=== PATIENT | male | born 1960 | race Caucasian/White ===

== ENCOUNTER 2018-08-17 07:31 | Emergency (ER) | payer BC, SELFPAY ==
[2018-08-17] MEDS ORDERED: ONDANSETRON 4 MG/2 ML VIAL ONE (08:04)
[2018-08-17] MEDS ORDERED: LIDOCAINE VISCOUS 2% SOLN 15 ML UDC ONE (08:04)
[2018-08-17] MEDS ORDERED: MAGNE/ALUM HYDROXD 30 ML UCUP ONE (08:04)
[2018-08-17] MEDS ORDERED: NA CHLORIDE 0.9% 500 ML ONE ×2 (08:04→10:49)
[2018-08-17 08:21] LABS: Absolute Lymphocytes (CBC) 2.2 K/uL (0.7-4.9); Absolute Monocytes 1.2 K/uL (0.1-1.3); Absolute Neutrophil 7.8 K/uL (1.8-8.0); Eosinophils % 1.9 % (0-4.4); Hematocrit 54.8 % (39.6-49.0); Lymphocytes % 18.9 % (15.3-44.8); MCH 31.3 pg (27.0-35.0); MCV 93.4 fL (80-100); MPV 8.8 fL (7.6-11.3); Monocytes % 10.7 % (3.3-12.3); RBC Red Blood Cell Count 5.87 M/uL (4.33-5.43)
--- NOTE | 2018-08-17 08:52 | RAD REPORT ---
EXAM DESCRIPTION: US - Abdomen Exam Limited - 08/17/2018 8:20 am CLINICAL HISTORY: ABD PAIN COMPARISON: No comparisons FINDINGS: The gallbladder demonstrates 2 small echogenic gallstones. No pericholecystic fluid or gal lbladder wall thickening. The common bile duct is normal measuring 5 mm. The liver demonstrates no findings of intrahepatic biliary dilatation. IMPRESSION: Cholelithiasis.
[2018-08-17 09:14] LABS: ALT/SGPT 56 U/L (12-78); AST/SGOT 32 U/L (15-37); Albumin 3.7 g/dL (3.4-5.0); Alkaline Phosphatase 98 U/L (45-117); BUN Blood Urea Nitrogen 10 mg/dL (7-18); Bicarbonate 29 mmol/L (21-32); Bilirubin Direct 0.1 mg/dL (0-0.2); Bilirubin Total 0.8 mg/dL (0.2-1.0); Glucose Level 186 mg/dL (74-106); Lipase 108 U/L (73-393); Potassium 4.1 mmol/L (3.5-5.1); Sodium Level 138 mmol/L (136-145)
--- NOTE | 2018-08-17 10:23 | RAD REPORT ---
EXAM DESCRIPTION: CTAbdomen Pelvis W Contrast - 08/17/2018 10:10 am CLINICAL HISTORY: Abdominal pain. ABD PAIN COMPARISON: No comparisons TECHNIQUE: Biphasic CT imaging of the abdomen and pelvis was performed with 100 ml non-ionic IV cont rast. All CT scans are performed using dose optimization technique as appropriate and may include automated exposure control or mA/KV adjustment according to patient size. FINDINGS: The lung bases are clear. Mild fatty liver is present. Cholelithiasis. The spleen, pancreas, kidneys are within normal limits. Small nodules are present in both adrenal glands. No bowel obstruction, free air, free fluid or abscess. Mildly prominent small bowel loops are seen wh ich appear slightly thickened. Small amount of fluid is seen in the small bowel mesentery, right lowe r quadrant and along the right edge of the liver. The appendix is normal. No evidence of significant lymphadenopathy. Lumbosacral degenerative changes. IMPRESSION: Few mildly thickened small bowel loops are seen with a small amount of free fluid presen t. The findings most likely indicate a nonspecific enteritis. Cholelithiasis.
--- NOTE | 2018-08-17 10:39 | ER ---
Nurse's Notes [facility] Name: Dakota Escalera Age: 58 yrs Sex: Male : 1960 Arrival Date: 08/17/2018 Time: 07:35 Bed 16 Private MD: Dakota Jeronimo D Diagnosis: Upper abdominal pain, unspecified;Enteritis Presentation: 08/17 07:36 Presenting complaint: Patient states: i have been sick to my stomach since , hj N/V and diarrhea and my tumny hurts (epigastric area) and i belch a lot; reports fever; pain is 6/10;. Transition of care: patient was not received from another setting of care. Onset of symptoms was August 17, 2018. Risk Assessment: Do you want to hurt yourself or someone else? Patient reports no desire to harm self or others. Initial Sepsis Screen: Does the patient meet any 2 criteria? No. Patient's initial sepsis screen is negative. Does the patient have a suspected source of infection? No. Patient's initial sepsis screen is negative. Care prior to arrival: None. 07:36 Method Of Arrival: Ambulatory 07:36 Acuity: ADENIKE 3 hj Triage Assessment: 07:41 General: Appears in no apparent distress. uncomfortable, Behavior is calm, cooperative, hj appropriate for age. Pain: Complains of pain in abdomen. GI: Reports upper abdominal pain, diarrhea, nausea, vomiting. Historical: - Allergies: 07:40 PENICILLINS; hj - Home Meds: 07:40 levothyroxine 25 mcg tab 1 tab once daily [Active]; Victoza 2-Raymundo 0.6 mg/0.1 mL (18 hj mg/3 mL) subcutaneous pnij [Active]; - PMHx: 07:40 Hypothyroidism; Diabetes - NIDDM; hj - PSHx: 07:40 back surgery; hj - Immunization history:: Adult Immunizations up to date. - Social history:: Smoking status: Patient uses tobacco products, smokes one pack cigarettes per day. Patient/guardian denies using alcohol. - Ebola Screening: : Patient negative for fever greater than or equal to 101.5 degrees Fahrenheit, and additional compatible Ebola Virus Disease symptoms Patient denies exposure to infectious person Patient denies travel to an Ebola-affected area in the 21 days before illness onset. - Family history:: not pertinent. - Hospitalizations: : No recent hospitalization is reported. Screenin:41 Abuse screen: Denies threats or abuse. Denies injuries from another. Nutritional hj screening: No deficits noted. Tuberculosis screening: No symptoms or risk factors identified. Fall Risk None identified. Assessment: 07:41 GI: Bowel sounds present X 4 quads. Abd is soft Abdomen is tender to palpation. hj 08:15 General: Appears in no apparent distress. comfortable, obese, well groomed, Behavior is ph calm, cooperative, appropriate for age, Denies fever. Pain: Complains of pain in epigastric area. Neuro: Level of Consciousness is awake, alert, obeys commands, Oriented to person, place, time, situation. Cardiovascular: Capillary refill < 3 seconds in bilateral fingers Patient's skin is warm and dry. Respiratory: Airway is patent Respiratory effort is even, unlabored, Respiratory pattern is regular, symmetrical. GI: Abdomen is non-distended, obese, Bowel sounds present X 4 quads. Abd is soft X 4 quads Abdomen is tender to palpation in epigastric area Reports diarrhea, epigastric pain, gaseousness, nausea, Patient currently denies bloody stool, constipation, vomiting. : No signs and/or symptoms were reported regarding the genitourinary system. Derm: Skin is intact, is healthy with good turgor, Skin is pink, warm \T\ dry. Musculoskeletal: Circulation, motion, and sensation intact. Range of motion: intact in all extremities. 08:29 Reassessment: Pt returned from US, completed PO contrast, CT notified. ph 09:58 Reassessment: Patient appears in no apparent distress at this time. Patient and/or ph family updated on plan of care and expected duration. Pain level reassessed. Patient is alert, oriented x 3, equal unlabored respirations, skin warm/dry/pink. Pt taken to CT via wheelchair. 11:04 Reassessment: Patient appears in no apparent distress at this time. Patient and/or ph family updated on plan of care and expected duration. Pain level reassessed. Patient is alert, oriented x 3, equal unlabored respirations, skin warm/dry/pink. Pt resting quietly, awaiting completion of IV fluids before d/c. 11:36 Reassessment: Patient appears in no apparent distress at this time. Patient and/or ph family updated on plan of care and expected duration. Pain level reassessed. Patient is alert, oriented x 3, equal unlabored respirations, skin warm/dry/pink. Pt d/c home. Vital Signs: 07:42 BP 113 / 81; Pulse 81; Resp 18; Temp 97.7(TE); Pulse Ox 99% on R/A; Weight 129.27 kg; hj Height 5 ft. 9 in. (175.26 cm); Pain 6/10; 08:30 BP 118 / 78; Pulse 78; Resp 18; Pulse Ox 93% on R/A; ph 09:57 BP 122 / 74; Pulse 86; Resp 18; Pulse Ox 94% on R/A; ph 11:37 BP 124 / 72; Pulse 84; Resp 18; Temp 97.9; Pulse Ox 99% on R/A; ph 07:42 Body Mass Index 42.09 (129.27 kg, 175.26 cm) hj ED Course: 07:35 Patient arrived in ED. sb2 07:35 Dakota Jeronimo MD is Private Physician. sb2 07:36 Rangel Moore MD is Attending Physician. rn 07:39 Triage completed. hj 07:41 Arm band placed on left wrist. hj 07:41 Patient has correct armband on for positive identification. Placed in gown. Bed in low hj position. Call light in reach. Side rails up X 1. 07:44 Renetta Husain, RN is Primary Nurse. ph 08:05 Inserted saline lock: 22 gauge in left antecubital area, using aseptic technique. ph 08:20 US Abdomen Limited In Process Unspecified. EDMS 08:27 Ultrasound completed. hr 08:43 EKG done, by information technology account manager. reviewed by Rangel Moore MD. tc 10:10 CT completed. Patient tolerated procedure well. Patient moved back from CT. jj2 10:11 CT Abd/Pelvis - W/Contrast In Process Unspecified. EDMS 11:05 No provider procedures requiring assistance completed. ph 11:37 IV discontinued, intact, bleeding controlled, No redness/swelling at site. Pressure ph dressing applied. Administered Medications: 08:10 Drug: GI Cocktail without - (Maalox Suspension 30 ml, Lidocaine Liquid 2 % 15 ph ml) Route: PO; 08:47 Follow up: Response: No adverse reaction ph 08:15 Drug: Zofran 4 mg Route: IVP; Site: left antecubital; ph 08:46 Follow up: Response: No adverse reaction ph 08:15 Drug: NS 0.9% 500 ml Route: IV; Rate: bolus; Site: left antecubital; ph 10:24 Follow up: Response: No adverse reaction; IV Status: Completed infusion ph 10:48 Drug: NS 0.9% 500 ml Route: IV; Rate: bolus; Site: left antecubital; ph 11:38 Follow up: Response: No adverse reaction; IV Status: Completed infusion ph Outcome: 10:38 Discharge ordered by . rn 11:38 Discharged to home ambulatory. ph 11:38 Condition: good 11:38 Discharge instructions given to patient, Instructed on discharge instructions, follow up and referral plans. medication usage, Demonstrated understanding of instructions, follow-up care, medications, Prescriptions given X 2. 11:38 Patient left the ED. ph Signatures: Dispatcher [employer] EDMS Gabriel Valdez Haley hr Nieto, Roman, MD MD rn Callis, Tiffany, bevel face stoner and polisher EKG Ttc Renetta Husain RN RN Feliberto Stone RN Anette Herrera sb2 Corrections: (The following items were deleted from the chart) 07:43 07:42 Pulse 81bpm; Resp 18bpm; Pulse Ox 99% RA; Temp 97.7F Temporal; 129.27 kg; Height 5 ft. 9 in.; BMI: 42.0; Pain 6/10; hj 09:58 08:30 BP 118 / 78; Pulse 78bpm; Resp 18bpm; Pulse Ox 99% RA; ph ph
--- NOTE | 2018-08-17 10:39 | EDPHYS ---
Physician Documentation [facility] Name: Dakota Escalera Age: 58 yrs Sex: Male : 1960 Arrival Date: 08/17/2018 Time: 07:35 Bed 16 Private MD: Dakota Jeronimo D ED Physician Rangel Moore HPI: 08/17 07:52 This 58 yrs old Male presents to ER via Ambulatory with complaints of Abd rn Pain > 50 y/o. 07:52 The patient presents with abdominal pain. Onset: The symptoms/episode began/occurred 5 rn day(s) ago. The symptoms do not radiate. Associated signs and symptoms: Pertinent positives: nausea and vomiting, diarrhea, Pertinent negatives: dysuria, fever, hematuria, testicular pain, vomiting blood. The symptoms are described as achy. Modifying factors: The symptoms are alleviated by nothing, the symptoms are aggravated by food, touching the area. Severity of pain: At its worst the pain was moderate in the emergency department the pain has improved. The patient has not experienced similar symptoms in the past. Reports abd pain, epigastric, intermittent for 5 days, able to eat some but + nausea and diarrhea, non-bloody, + acid reflux lately, worse this morning, no chest pain. + single episode of "gallbladder attack" in teenage years. . Historical: - Allergies: 07:40 PENICILLINS; hj - Home Meds: 07:40 levothyroxine 25 mcg tab 1 tab once daily [Active]; Victoza 2-Raymundo 0.6 mg/0.1 mL (18 hj mg/3 mL) subcutaneous pnij [Active]; - PMHx: 07:40 Hypothyroidism; Diabetes - NIDDM; hj - PSHx: 07:40 back surgery; hj - Immunization history:: Adult Immunizations up to date. - Social history:: Smoking status: Patient uses tobacco products, smokes one pack cigarettes per day. Patient/guardian denies using alcohol. - Ebola Screening: : Patient negative for fever greater than or equal to 101.5 degrees Fahrenheit, and additional compatible Ebola Virus Disease symptoms Patient denies exposure to infectious person Patient denies travel to an Ebola-affected area in the 21 days before illness onset. - Family history:: not pertinent. - Hospitalizations: : No recent hospitalization is reported. ROS: 07:54 Constitutional: Negative for fever, chills, and weight loss, Eyes: Negative for injury, rn pain, redness, and discharge, Neck: Negative for injury, pain, and swelling, Cardiovascular: Negative for chest pain, palpitations, and edema, Respiratory: Negative for shortness of breath, cough, wheezing, and pleuritic chest pain, Abdomen/GI: Negative for constipation, Back: Negative for injury and pain, : Negative for injury, bleeding, discharge, and swelling, MS/Extremity: Negative for injury and deformity, Skin: Negative for injury, rash, and discoloration, Neuro: Negative for headache, weakness, numbness, tingling, and seizure. Exam: 07:54 Constitutional: This is a well developed, well nourished patient who is awake, alert, rn and in no acute distress. Ambulating to room without difficulty. Head/Face: Normocephalic, atraumatic. ENT: MMM Cardiovascular: Regular rate and rhythm, No pulse deficits. Respiratory: Lungs have equal breath sounds bilaterally, clear to auscultation, No increased work of breathing, no retractions or nasal flaring. Abdomen/GI: soft, mild epigastric abd tenderness, neg purvis, no rebound Skin: Warm, dry MS/ Extremity: Pulses equal, no cyanosis. Neurovascular intact. Full, normal range of motion. Equal circumference. Neuro: Awake and alert, GCS 15, oriented to person, place, time, and situation. Cranial nerves II-XII grossly intact. Motor strength 5/5 in all extremities. Sensory grossly intact. Cerebellar exam normal. Normal gait. 08:48 ECG was reviewed by the Attending Physician. rn Vital Signs: 07:42 BP 113 / 81; Pulse 81; Resp 18; Temp 97.7(TE); Pulse Ox 99% on R/A; Weight 129.27 kg; hj Height 5 ft. 9 in. (175.26 cm); Pain 6/10; 08:30 BP 118 / 78; Pulse 78; Resp 18; Pulse Ox 93% on R/A; ph 09:57 BP 122 / 74; Pulse 86; Resp 18; Pulse Ox 94% on R/A; ph 11:37 BP 124 / 72; Pulse 84; Resp 18; Temp 97.9; Pulse Ox 99% on R/A; ph 07:42 Body Mass Index 42.09 (129.27 kg, 175.26 cm) hj MDM: 07:44 Patient medically screened. rn 10:36 Differential diagnosis: cholecystitis, Cholelithiasis, gastritis, gastroesophageal rn reflux disease, non-specific abd pain, pancreatitis. Data reviewed: vital signs, nurses notes, lab test result(s), radiologic studies, CT scan, ultrasound, and as a result, I will discharge patient. Counseling: I had a detailed discussion with the patient and/or guardian regarding: the historical points, exam findings, and any diagnostic results supporting the discharge/admit diagnosis, lab results, radiology results, the need for outpatient follow up, to return to the emergency department if symptoms worsen or persist or if there are any questions or concerns that arise at home. Response to treatment: the patient's symptoms have markedly improved after treatment, and as a result, I will discharge patient. Special discussion: Based on the patient's Hx, exam, and Dx evaluation, there is no indication for emergent surgery or inpatient Tx. It is understood by the patient/guardian that if the Sx's persist or worsen they need to return immediately for re-evaluation. I discussed with the patient/guardian in detail that at this point there is no indication for admission to the hospital. It is understood, however, that if the symptoms persist or worsen the patient needs to return immediately for re-evaluation. ED course: Reports feels much better, tolerates PO, normal vitals, + enteritis and dehydration. Cholelithiasis but no cholecystitis, likely not cause of acute symptoms given vomiting and diarrhea with epigastric pain.. 08/17 07:51 Order name: Basic Metabolic Panel; Complete Time: 09:49 rn 08/17 07:51 Order name: CBC with Diff; Complete Time: 08:40 rn 08/17 07:51 Order name: Hepatic Function; Complete Time: 09:49 rn 08/17 07:51 Order name: Lipase; Complete Time: 09:49 rn 08/17 07:54 Order name: Troponin (emerg Dept Use Only); Complete Time: 09:49 rn 08/17 08:00 Order name: Urine Dipstick--Ancillary (enter results) eb 08/17 07:51 Order name: IV Saline Lock; Complete Time: 08:22 rn 08/17 07:51 Order name: US Abdomen Limited; Complete Time: 09:49 rn 12/10 07:51 Order name: CT Abd/Pelvis - W/Contrast; Complete Time: 10:24 rn 08/17 07:54 Order name: EKG; Complete Time: 07:55 rn 08/17 07:51 Order name: Labs collected and sent; Complete Time: 08:23 rn 08/17 07:54 Order name: EKG - Nurse/Tech; Complete Time: 08:46 rn EC:48 Rate is 78 beats/min. Rhythm is regular. QRS [place] is Normal. MA interval is normal. QRS rn interval is normal. QT interval is normal. No Q waves. T waves are Normal. No ST changes noted. Clinical impression: Normal ECG. Interpreted by me. Administered Medications: 08:10 Drug: GI Cocktail without - (Maalox Suspension 30 ml, Lidocaine Liquid 2 % 15 ph ml) Route: PO; 08:47 Follow up: Response: No adverse reaction ph 08:15 Drug: Zofran 4 mg Route: IVP; Site: left antecubital; ph 08:46 Follow up: Response: No adverse reaction ph 08:15 Drug: NS 0.9% 500 ml Route: IV; Rate: bolus; Site: left antecubital; ph 10:24 Follow up: Response: No adverse reaction; IV Status: Completed infusion ph 10:48 Drug: NS 0.9% 500 ml Route: IV; Rate: bolus; Site: left antecubital; ph 11:38 Follow up: Response: No adverse reaction; IV Status: Completed infusion ph Disposition: 08/17/18 10:38 Discharged to Home. Impression: Upper abdominal pain, unspecified, Enteritis. - Condition is Stable. - Discharge Instructions: Abdominal Pain, Adult, Viral Gastroenteritis, Adult. - Prescriptions for Zofran ODT 4 mg Oral tablet,disintegrating - place 1 tablet by TRANSLINGUAL route every 8-10 hours As needed; 15 tablet. Tylenol- Codeine #3 300-30 mg Oral Tablet - take 1 tablet by ORAL route every 6 hours As needed; 15 tablet. - Medication Reconciliation Form, Thank You Letter, Antibiotic Education, Prescription Opioid Use, Work release form form. - Follow up: Private Physician; When: As needed; Reason: Recheck today's complaints, Re-evaluation by your physician. - Problem is new. - Symptoms have improved. Signatures: Dispatcher [employer] EDMS Rangel Moore MD MD rn Hall, Patricia, RN RN ph Feliberto Stone RN RN Corrections: (The following items were deleted from the chart) 11:38 10:38 08/17/2018 10:38 Discharged to Home. Impression: Upper abdominal pain, ph unspecified; Enteritis. Condition is Stable. Forms are Medication Reconciliation Form, Thank You Letter, Antibiotic Education, Prescription Opioid Use. Follow up: Private Physician; When: As needed; Reason: Recheck today's complaints, Re-evaluation by your physician. Problem is new. Symptoms have improved. rn
--- NOTE | 2018-08-17 11:35 | EKG ---
Test Date: 2018-08-17 Test Time: 08:39:32 Nursing Surgical Services Director: ODALYS MEASUREMENT RESULTS: Intervals: Rate: 78 SC: 132 QRSD: 88 QT: 386 QTc: 440 [place]: P: 42 SC: 132 QRS: -12 T: 28 INTERPRETIVE STATEMENTS: Normal sinus rhythm Normal ECG No previous ECG available for comparison Electronically Signed On 08-17-18 11:34:40 RETENTION REPRESENTATIVE by Silviano Harrell
[2018-08-17 17:13] LABS: Urine Blood TRACE (NEG); Urine Glucose NEGATIVE (NEG); Urine Protein 1+ (NEG); Urine Specific Gravity 1.025 (1.005-1.030); Urine pH 5.5 (5.0-7.0)
== END 2018-08-17 11:38 | disposition home or self-care (01) ==
LOC: ER 07:31
DX: K52.9 Noninfective gastroenteritis and colitis, unspecified (principal); F17.210 Nicotine dependence, cigarettes, uncomplicated; E11.9 Type 2 diabetes mellitus without complications; E03.9 Hypothyroidism, unspecified; Z79.4 Long term (current) use of insulin; Z88.0 Allergy status to penicillin
CPT/HCPCS: 36415; 74177; 76705; 80048; 80076; 81003; 83690; 84484; 85025; 93005; 96361; 96374; 99284; J2405; Q9967

== ENCOUNTER 2019-02-18 19:27 | Emergency (ER) | payer BC ==
[2019-02-18 21:20] LABS: Protime INR 1.01
[2019-02-18 21:24] LABS: Absolute Lymphocytes (CBC) 2.9 K/uL (0.7-4.9); Absolute Monocytes 1.2 K/uL (0.1-1.3); Absolute Neutrophil 6.3 K/uL (1.8-8.0); Basophils % 0.9 % (0-1.3); Eosinophils % 2.1 % (0-4.4); Hematocrit 53.4 % (39.6-49.0); Lymphocytes % 26.7 % (15.3-44.8); MPV 8.6 fL (7.6-11.3); Monocytes % 11.4 % (3.3-12.3); RBC Red Blood Cell Count 5.74 M/uL (4.33-5.43)
[2019-02-18 21:42] LABS: ALT/SGPT 30 U/L (12-78); AST/SGOT 17 U/L (15-37); Albumin 3.5 g/dL (3.4-5.0); Alkaline Phosphatase 78 U/L (45-117); BUN Blood Urea Nitrogen 13 mg/dL (7-18); Bicarbonate 25 mmol/L (21-32); Bilirubin Direct 0.1 mg/dL (0-0.2); Bilirubin Total 0.8 mg/dL (0.2-1.0); Glucose Level 110 mg/dL (74-106); Magnesium 2.1 mg/dL (1.8-2.4); NT PRO-BNP 12 pg/mL (<125); Potassium 4.2 mmol/L (3.5-5.1); Protein, Total 7.5 g/dL (6.4-8.2); Sodium Level 142 mmol/L (136-145); Troponin (Emerg Dept Use Only) < 0.02 ng/mL (0.0-0.045)
--- NOTE | 2019-02-19 00:06 | ER ---
Nurse's Notes [facility] Name: Dakota Escalera Age: 59 yrs Sex: Male : 1960 Arrival Date: 02/18/2019 Time: 19:30 Bed 5 Private MD: Estrada Zhou Diagnosis: Chest pain, unspecified Presentation: 02/18 19:36 Presenting complaint: Patient states: left chest wall pain, reproducible with ak1 palpation, since 0300. pt stated he does not check his blood sugar at home. pt denies SOB, denies N/V. pt resp even and unlabored in triage. Transition of care: patient was not received from another setting of care. Onset of symptoms was February 18, 2019. Risk Assessment: Do you want to hurt yourself or someone else? Patient reports no desire to harm self or others. Initial Sepsis Screen: Does the patient meet any 2 criteria? No. Patient's initial sepsis screen is negative. Does the patient have a suspected source of infection? No. Patient's initial sepsis screen is negative. Care prior to arrival: None. 19:36 Acuity: ADENIKE 3 ak1 19:36 Method Of Arrival: Ambulatory ak1 Triage Assessment: 19:32 General: Appears in no apparent distress. Behavior is calm, cooperative. Pain: ak1 Complains of pain in chest Pain does not radiate. EENT: No signs and/or symptoms were reported regarding the EENT system. Neuro: No deficits noted. Cardiovascular: Reports chest pain, Denies diaphoresis, fatigue, lightheadedness, nausea, palpitations, shortness of breath, vomiting, Parent/caregiver reports patient has had since 0300 this morning. pt c/o increased pain with palpation. Respiratory: No deficits noted. GI: No signs and/or symptoms were reported involving the gastrointestinal system. : No signs and/or symptoms were reported regarding the genitourinary system. Derm: No signs and/or symptoms reported regarding the dermatologic system. Musculoskeletal: Reports pain in anterior aspect of left upper chest and left breast. Historical: - Allergies: 19:32 PENICILLINS; ak1 - Home Meds: 19:32 Victoza 2-Raymundo 0.6 mg/0.1 mL (18 mg/3 mL) subcutaneous pnij [Active]; Jardiance oral ak1 oral [Active]; levothyroxine 25 mcg tab 1 tab once daily [Active]; aspirin 81 mg Oral chew [Active]; - PMHx: 19:32 Diabetes - NIDDM; Hypothyroidism; ak1 - PSHx: 19:32 back surgery; ak1 - Immunization history:: Adult Immunizations unknown. - Social history:: Smoking status: Patient uses tobacco products, smokes two packs cigarettes per day. - Ebola Screening: : No symptoms or risks identified at this time. Screenin:07 Abuse screen: Denies threats or abuse. Denies injuries from another. Nutritional mg2 screening: No deficits noted. Tuberculosis screening: No symptoms or risk factors identified. Fall Risk IV access (20 points). Assessment: 21:07 General: Appears in no apparent distress. comfortable, Behavior is calm, cooperative. mg2 Pain: Complains of pain in anterior aspect of left upper chest and chest Pain does not radiate. Pain currently is 4 out of 10 on a pain scale. Quality of pain is described as aching, Pain began gradually, since 3 am today Is intermittent. Neuro: Level of Consciousness is awake, alert, obeys commands, Oriented to person, place, time, situation. Cardiovascular: Capillary refill < 3 seconds Patient's skin is warm and dry. Cardiovascular: Chest pain is described as vague, quality is sharp, is located in left anterior began since 3 am today. Respiratory: Airway is patent Respiratory effort is even, unlabored, Respiratory pattern is regular, symmetrical. GI: No signs and/or symptoms were reported involving the gastrointestinal system. : No signs and/or symptoms were reported regarding the genitourinary system. EENT: No signs and/or symptoms were reported regarding the EENT system. Derm: Skin is intact, is healthy with good turgor, Skin is pink, warm \T\ dry. normal. Musculoskeletal: Circulation, motion, and sensation intact. Capillary refill < 3 seconds. 02/19 00:16 Reassessment: Patient appears in no apparent distress at this time. Patient and/or mg2 family updated on plan of care and expected duration. Pain level reassessed. Patient is alert, oriented x 3, equal unlabored respirations, skin warm/dry/pink. Vital Signs: 02/18 19:32 Pulse 78; Resp 20; Temp 98; Pulse Ox 96% on R/A; Weight 127.01 kg (R); Height 5 ft. 9 ak1 in. (175.26 cm) (R); Pain 7/10; 19:36 BP 129 / 80; ak1 21:11 BP 118 / 87; Pulse 85; Resp 18; Temp 98; Pulse Ox 91% on R/A; Pain 4/10; mg2 21:13 Pulse Ox 95% on 3 lpm NC; mg2 22:50 BP 116 / 75; Pulse 78; Resp 18; Temp 98; Pulse Ox 95% on 3 lpm NC; mg2 02/19 00:15 BP 122 / 91; Pulse 79; Resp 18; Temp 98.1; Pulse Ox 100% on R/A; Pain 2/10; mg2 02/18 19:32 Body Mass Index 41.35 (127.01 kg, 175.26 cm) ak1 ED Course: 02/18 19:30 Patient arrived in ED. am2 19:30 Estrada Zhou DO is Private Physician. am2 19:32 Arm band placed on Patient placed in waiting room, Patient notified of wait time. EKG ak1 completed in triage. Results shown to MD. 19:37 Triage completed. ak1 20:57 Kalia Mast, RN is Primary Nurse. mg2 21:04 Arcadio Pichardo MD is Attending Physician. gs 21:06 No provider procedures requiring assistance completed. Inserted saline lock: 20 gauge mg2 in right antecubital area, using aseptic technique. Blood collected. Patient maintains SpO2 saturation greater than 95% on room air. 21:09 XRAY Chest (1 view) In Process Unspecified. EDMS 21:10 Patient has correct armband on for positive identification. research laboratory manager on. Pulse mg2 ox on. NIBP on. Door closed. 22:37 CT Aorta for Dissection In Process Unspecified. EDMS 22:42 Repeat lab(s) drawn. by va, sent to lab. mg2 02/19 00:04 Silviano Harrell MD is Referral Physician. gs 00:16 IV discontinued, intact, bleeding controlled, No redness/swelling at site. Pressure mg2 dressing applied. Administered Medications: No medications were administered Outcome: 00:04 Discharge ordered by . gs 00:17 Discharged to home ambulatory, with family. mg2 00:17 Condition: stable 00:17 Discharge instructions given to patient, family, Instructed on discharge instructions, follow up and referral plans. Demonstrated understanding of instructions, follow-up care. 00:17 Patient left the ED. mg2 Signatures: Dispatcher [employer] EDMS Dionna Horvath RN RN ak1 Moriah Elizondo am2 Arcadio Pichardo MD MD gs Gardose, Michele, RN RN mg2
--- NOTE | 2019-02-19 00:06 | EDPHYS ---
Physician Documentation [facility] Name: Dakota Escalera Age: 59 yrs Sex: Male : 1960 Arrival Date: 02/18/2019 Time: 19:30 Bed 5 Private MD: Estrada Zhou ED Physician Arcadio Pichardo HPI: 02/18 23:58 This 59 yrs old Male presents to ER via Ambulatory with complaints of Chest gs Pain > 30 y/o. 23:58 The patient or guardian reports chest pain that is located primarily in the anterior gs chest wall. Onset: this morning. Associated signs and symptoms: Pertinent negatives: diaphoresis, shortness of breath. The chest pain is described as a heaviness. Duration: The patient or guardian reports a single episode, that is still ongoing. Modifying factors: The symptoms are alleviated by nothing. the symptoms are aggravated by movement, twisting torso. Severity of pain: At its worst the pain was moderate in the emergency department the pain has improved moderately. The patient has experienced similar episodes in the past, a few times. The patient has not recently seen a physician. Historical: - Allergies: 19:32 PENICILLINS; ak1 - Home Meds: 19:32 Victoza 2-Raymundo 0.6 mg/0.1 mL (18 mg/3 mL) subcutaneous pnij [Active]; Jardiance oral ak1 oral [Active]; levothyroxine 25 mcg tab 1 tab once daily [Active]; aspirin 81 mg Oral chew [Active]; - PMHx: 19:32 Diabetes - NIDDM; Hypothyroidism; ak1 - PSHx: 19:32 back surgery; ak1 - Immunization history:: Adult Immunizations unknown. - Social history:: Smoking status: Patient uses tobacco products, smokes two packs cigarettes per day. - Ebola Screening: : No symptoms or risks identified at this time. ROS: 23:58 All other systems are negative. gs Exam: 23:58 Head/Face: Normocephalic, atraumatic. Eyes: Pupils equal round and reactive to light, gs extra-ocular motions intact. Lids and lashes normal. Conjunctiva and sclera are non-icteric and not injected. Cornea within normal limits. Periorbital areas with no swelling, redness, or edema. ENT: Nares patent. No nasal discharge, no septal abnormalities noted. Tympanic membranes are normal and external auditory canals are clear. Oropharynx with no redness, swelling, or masses, exudates, or evidence of obstruction, uvula midline. Mucous membranes moist. Neck: Trachea midline, no thyromegaly or masses palpated, and no cervical lymphadenopathy. Supple, full range of motion without nuchal rigidity, or vertebral point tenderness. No Meningismus. Chest/axilla: Normal chest wall appearance and motion. Nontender with no deformity. No lesions are appreciated. Cardiovascular: Regular rate and rhythm with a normal S1 and S2. No gallops, murmurs, or rubs. Normal PMI, no JVD. No pulse deficits. Respiratory: Lungs have equal breath sounds bilaterally, clear to auscultation and percussion. No rales, rhonchi or wheezes noted. No increased work of breathing, no retractions or nasal flaring. Abdomen/GI: Soft, non-tender, with normal bowel sounds. No distension or tympany. No guarding or rebound. No evidence of tenderness throughout. Back: No spinal tenderness. No costovertebral tenderness. Full range of motion. Skin: Warm, dry with normal turgor. Normal color with no rashes, no lesions, and no evidence of cellulitis. MS/ Extremity: Pulses equal, no cyanosis. Neurovascular intact. Full, normal range of motion. Neuro: Awake and alert, GCS 15, oriented to person, place, time, and situation. Cranial nerves II-XII grossly intact. Motor strength 5/5 in all extremities. Sensory grossly intact. Cerebellar exam normal. Normal gait. 23:58 Constitutional: The patient appears alert, awake. 23:58 ECG was reviewed by the Attending Physician. Vital Signs: 19:32 Pulse 78; Resp 20; Temp 98; Pulse Ox 96% on R/A; Weight 127.01 kg (R); Height 5 ft. 9 ak1 in. (175.26 cm) (R); Pain 7/10; 19:36 BP 129 / 80; ak1 21:11 BP 118 / 87; Pulse 85; Resp 18; Temp 98; Pulse Ox 91% on R/A; Pain 4/10; mg2 21:13 Pulse Ox 95% on 3 lpm NC; mg2 22:50 BP 116 / 75; Pulse 78; Resp 18; Temp 98; Pulse Ox 95% on 3 lpm NC; mg2 02/19 00:15 BP 122 / 91; Pulse 79; Resp 18; Temp 98.1; Pulse Ox 100% on R/A; Pain 2/10; mg2 02/18 19:32 Body Mass Index 41.35 (127.01 kg, 175.26 cm) ak1 MDM: 02/18 21:45 Patient medically screened. gs 23:58 Differential diagnosis: abnormal EKG, acute myocardial infarction, chest wall pain, gs pleurisy, pneumonia, thoracic aortic disection. HEART Score: History: Slightly Suspicious (0), ECG: Non specific repolarization disturbance / LBTB / PM (1), Age: > 45 and < 65 years (1), Risk Factors: 1 or 2 risk factors (1), Troponin: > or = 3 x Normal Limit (2). Data reviewed: vital signs, nurses notes, lab test result(s), EKG, radiologic studies. Counseling: I had a detailed discussion with the patient and/or guardian regarding: the historical points, exam findings, and any diagnostic results supporting the discharge/admit diagnosis, lab results, radiology results, the need for outpatient follow up. Response to treatment: the patient's symptoms have resolved after treatment, the patient's pain is gone, the patient's condition has returned to base line. 02/18 20:57 Order name: Basic Metabolic Panel; Complete Time: 21:45 mg2 02/18 20:57 Order name: CBC with Diff; Complete Time: 21:45 mg2 02/18 20:57 Order name: LFT's; Complete Time: 21:45 mg2 02/18 20:57 Order name: Magnesium; Complete Time: 21:45 mg2 02/18 20:57 Order name: NT PRO-BNP; Complete Time: 21:45 mg2 02/18 20:57 Order name: PT-INR; Complete Time: 21:45 mg2 02/18 20:57 Order name: Troponin (emerg Dept Use Only); Complete Time: 21:45 mg2 02/18 20:57 Order name: XRAY Chest (1 view) [facility] 02/18 20:57 Order name: EKG; Complete Time: 21:00 mg2 02/18 20:57 Order name: Cardiac monitoring; Complete Time: 21:08 mg2 02/18 20:57 Order name: EKG - Nurse/Tech; Complete Time: 21:08 [facility] 02/18 20:57 Order name: IV Saline Lock; Complete Time: 21:08 [facility] 02/18 21:50 Order name: CT Aorta for Dissection 02/18 21:50 Order name: Troponin I; Complete Time: 23:10 02/18 20:57 Order name: Labs collected and sent; Complete Time: 21: [facility] 02/18 20:57 Order name: O2 Per Protocol; Complete Time: 21: [facility] 02/18 20:57 Order name: O2 Sat Monitoring; Complete Time: 21:08 mg2 EC:58 Rate is 57 beats/min. Rhythm is regular. OH interval is normal. QRS interval is normal. Q waves are Old in lead V1. No ST changes noted. Clinical impression: Abnormal EKG without significant change. Interpreted by me. Administered Medications: No medications were administered Disposition: 02/19/19 00:04 Discharged to Home. Impression: Chest pain, unspecified. - Condition is Stable. - Discharge Instructions: Nonspecific Chest Pain. - Medication Reconciliation Form, Thank You Letter, Antibiotic Education, Prescription Opioid Use form. - Follow up: Silviano Harrell MD; When: 2 - 3 days; Reason: Re-evaluation by your physician. Signatures: Dispatcher [employer] EDAZ Dionna Horvath RN RN ak1 Arcadio Pichardo MD MD Kalia Mast RN RN mg2 Corrections: (The following items were deleted from the chart) 02/19 00:17 00:04 02/19/2019 00:04 Discharged to Home. Impression: Chest pain, unspecified. mg2 Condition is Stable. Forms are Medication Reconciliation Form, Thank You Letter, Antibiotic Education, Prescription Opioid Use. Follow up: Silviano Harrell; When: 2 - 3 days; Reason: Re-evaluation by your physician. gs
--- NOTE | 2019-02-19 08:03 | EKG ---
Test Date: 2019-02-18 Test Time: 19:38:09 Retail Store Manager: ALENT MEASUREMENT RESULTS: Intervals: Rate: 82 MN: 116 QRSD: 86 QT: 372 QTc: 434 [place]: P: 59 MN: 116 QRS: -19 T: 60 INTERPRETIVE STATEMENTS: Normal sinus rhythm Normal ECG Compared to ECG 08/17/2018 08:39:32 No significant changes Electronically Signed On 02-19-19 08:02:39 CDT by Silviano Harrell
--- NOTE | 2019-02-19 08:15 | RAD REPORT ---
EXAM DESCRIPTION: RAD - Chest Single View - 02/18/2019 9:25 pm CLINICAL HISTORY: Left-sided chest pain COMPARISON: None. TECHNIQUE: AP portable chest image was obtained 2107 hours . FINDINGS: No focal lung parenchymal process. No failure or volume overload. Mild prominence of the i nterstitial markings noted suspected to be baseline. Heart and vasculature are normal. No measurable pleural effusion and no pneumothorax. No acute bony abnormality seen. No acute aortic findings suspec iris. IMPRESSION: No acute cardiopulmonary process.
--- NOTE | 2019-02-19 09:13 | RAD REPORT ---
EXAM DESCRIPTION: CT - Angio Aorta For Dissection - 02/19/2019 2:52 am CLINICAL HISTORY: Left chest wall pain. COMPARISON: None. TECHNIQUE: CT angiogram of the chest, abdomen, and pelvis with IV contrast. 3-D MIP images were obta ined in coronal and sagittal reconstructions in post-processing. This exam was performed according to our departmental dose-optimization program, which includes automated exposure control, adjustment of the mA and/or kV according to patient size and/or use of iterative reconstruction technique. FINDINGS: The thyroid gland is unremarkable. No mediastinal or hilar adenopathy. The heart size is n ormal without pericardial effusion. No consolidation, pleural effusion, or pneumothorax. There is a m osaic attenuation pattern in the bilateral upper lobes. Gallstones are present. The liver, spleen, pancreas, adrenal glands, and kidneys are unremarkable. Th e pelvic organs are unremarkable. No small bowel obstruction. The appendix is normal. No intraperiton eal free fluid or free air. There is no aortic aneurysm or dissection. There is mild intraluminal fibrofatty plaque throughout th e descending abdominal aorta. No filling defects are seen in the main pulmonary arteries or the segme ntal branches. No acute bony findings are seen. IMPRESSION: 1. No aortic aneurysm or dissection. 2. No acute pulmonary embolism. Electronically signed by: Magdy Lovell MD 02/18/2019 11:02 PM CDT Due to temporary technical issues with the PACS/Fluency reporting system, reports are being signed by the in house radiologist as a courtesy to ensure prompt reporting. The interpreting radiologist is f ully responsible for the content of the report.
== END 2019-02-19 00:17 | disposition home or self-care (01) ==
LOC: ER 19:27
DX: R07.9 Chest pain, unspecified (principal); F17.210 Nicotine dependence, cigarettes, uncomplicated; E03.9 Hypothyroidism, unspecified; E11.9 Type 2 diabetes mellitus without complications; Z79.82 Long term (current) use of aspirin; Z79.4 Long term (current) use of insulin; Z88.0 Allergy status to penicillin
CPT/HCPCS: 36415; 71045; 71275; 74175; 80048; 80076; 83735; 83880; 84484; 85025; 85610; 93005; 99285; Q9967

== ENCOUNTER 2020-09-22 06:58 | Day surgery (SDC) | payer BC ==
--- NOTE | 2020-09-22 06:20 | EKG ---
Test Date: 2020-09-21 Test Time: 13:16:08 Cosmetologist: IVELISSE MEASUREMENT RESULTS: Intervals: Rate: 78 [place]: 166 QRSD: 104 QT: 396 QTc: 451 [place]: P: 60 [place]: 166 QRS: -21 T: 64 INTERPRETIVE STATEMENTS: Normal sinus rhythm Normal ECG Compared to ECG 02/18/2019 19:38:09 No significant changes Electronically Signed On 09-22-20 06:18:07 DIRECTOR ADVANCED by Moy Fritz
[2020-09-22] MEDS ORDERED: NA CHLORIDE 0.9% 1,000 ML ONE (07:41)
[2020-09-22] MEDS ORDERED: MIDAZOLAM HCL 2 MG/2 ML INJ ONE (08:01)
[2020-09-22] MEDS ORDERED: propofoL 200 MG/20 ML VIAL IV ONE (08:01)
[2020-09-22] MEDS ORDERED: LIDOCAINE 2% MPF 5 ML VIAL ONE (08:02)
[2020-09-22] MEDS ORDERED: ROCURONIUM 50 MG/5 ML VIAL IV ONE (08:02)
[2020-09-22] MEDS ORDERED: EPINEPHRINE/PF 1 MG/ML AMP ONE (08:02)
[2020-09-22] MEDS ORDERED: FENTANYL CITR 100 MCG/2 ML ONE (08:02)
[2020-09-22] MEDS ORDERED: LIDOCAINE 1% MPF 30 ML VIAL ONE (08:02)
[2020-09-22] MEDS ORDERED: dexAMETHasone 10 MG/ML VIAL ONE (08:02)
[2020-09-22] MEDS ORDERED: GLYCOPYRROLATE 0.2 MG/ML SYR ONE (08:40)
[2020-09-22] MEDS ORDERED: NEOSTIGMINE 1 MG/ML -5 ML ONE (08:41)
--- NOTE | 2020-09-22 09:01 | OP ---
Date of Procedure: 09/22/2020 Surgeon: Ritu Lewis MD Preoperative Diagnosis: Laryngeal lesion of uncertain behavior. Postoperative Diagnosis: Laryngeal lesion of uncertain behavior. Pathology: Pending. Procedure: Direct laryngoscopy with telescope and biopsy. Surgical Findings: Friable red lesion attached to the right true vocal fold. Indication For Procedure: Mr. Escalera is a 60-year-old with a history of tobacco use, who presented wi th chronic dysphonia. Here in office flexible laryngoscopy demonstrated a round red appearing mass o f the right true vocal fold. The risks, benefits, and alternatives to the procedure were discussed. Description Of Procedure: The patient was brought to the operating room. He is placed under general anesthesia via oral endotracheal tube. A shoulder roll was placed and the neck is extended. Exam u nder anesthesia was performed. There was no obvious lesion as visible or palpable of the lips, gingi va, oral tongue, floor of mouth or oropharynx. The base of tongue palpates soft with no masses or le sions. The [facility] laryngoscope was fitted with a 15-degree telescope to perform magnification and photo documentation. The vallecula, epiglottis, posterior pharyngeal wall and arytenoids all are within normal limits. The scope is advanced anterior to the endotracheal tube for visualization of the glottis. Both vocal folds appear somewhat erythematous with moderate hypervascularity, the predo minant finding is a moderate size round red friable mass on the right vocal fold. The lesion is phot ographed, then grasped at its base with an alligator and up cutting laryngeal scissors is used to jason ncate the mass at its attachment point. Epinephrine-soaked pledget is applied to the site and after several minutes of removed. Photo documentation after removal indicates no visible residual lesion. The patient was returned to care of anesthesia for awakening in the operating room. Disposition: The patient will be discharged home later today with voice rest and follow up with Dr. Lewis in 1 week for re-evaluation and discussion of pathology results. ROC/RAJAN Voice ID: [id number] Report ID: [id number]
[2020-09-22 09:21] VITALS: BP 125/79; TEMP 97.9; O2SAT 96
== END 2020-09-22 09:53 | disposition home or self-care (01) ==
LOC: OR 06:58
PROVIDERS: ATTEND Otolaryngology
PROC: 0CBT8ZX Excision of Right Vocal Cord, Via Natural or Artificial Opening Endoscopic, Diagnostic (ICD-10-PCS; principal; 2020-09-22 08:00)
DX: J38.1 Polyp of vocal cord and larynx (principal); R49.0 Dysphonia; R03.0 Elevated blood-pressure reading, without diagnosis of hypertension; E66.3 Overweight; E11.9 Type 2 diabetes mellitus without complications; E03.9 Hypothyroidism, unspecified; Z20.822 Contact with and (suspected) exposure to COVID-19; Z87.891 Personal history of nicotine dependence
CPT/HCPCS: 93005; 82947 ×2; 88305; 31536; U0002; J2704; J0171; J2250; J3010; J1100; J2710; J7030

== ENCOUNTER 2021-04-21 05:53 | Emergency (ER) | payer BC ==
[2021-04-21] MEDS ORDERED: LIDOCAINE 2% MPF 5 ML VIAL ONE (07:27)
[2021-04-21] MEDS ORDERED: TETANUS & DIPHTHERIA TOX,ADULT 0.5 ML VIAL ONE (07:28)
[2021-04-21] MEDS ORDERED: HYDROCODONE/APAP 10/325 TAB ONE (07:28)
--- NOTE | 2021-04-21 07:54 | EDPHYS ---
Physician Documentation [facility] Name: Dakota Escalera Age: 61 yrs Sex: Male : 1960 Arrival Date: 04/21/2021 Time: 05:57 Bed DX1 Private MD: ED Physician Gonzalo Hdez HPI: 04/21 07:01 This 61 yrs old Male presents to ER via Ambulatory with complaints of Finger pm1 Injury. 07:01 The patient or guardian reports injury. The complaints affect the left ring finger. pm1 Context: The problem was sustained at home, resulted from Possibly from cutting his fingernails and / or cuticle. Onset: The symptoms/episode began/occurred 3 day(s) ago. Modifying factors: The symptoms are alleviated by Performing self I\\T\\D and expressing pus by using tweezers, the symptoms are aggravated by Palpation. Associated signs and symptoms: Pertinent negatives: cyanosis distally, decreased sensation distally, fever, numbness distally, tingling distally. Severity of symptoms: in the emergency department the symptoms have improved, No drainage present. The patient has not experienced similar symptoms in the past. The patient has not recently seen a physician. Patient presents to ER with complaints of left ring finger cellulitis that was possibly due to cutting his fingernails and/or cuticle. Yesterday the patient expressed pus from the area using a tweezer. Historical: - Allergies: 06:43 PENICILLINS; em - PMHx: 06:43 Diabetes - NIDDM; Hypothyroidism; em - PSHx: 06:43 "mass from vocal chords"; em - Immunization history:: Adult Immunizations up to date. - Social history:: Smoking status: Patient denies any tobacco usage or history of. ROS: 07:01 Constitutional: Negative for fever, chills, and weight loss. pm1 07:01 Cardiovascular: Negative for chest pain, palpitations, and edema, Respiratory: Negative for shortness of breath, cough, wheezing, and pleuritic chest pain. 07:01 Neuro: Negative for headache, weakness, numbness, tingling, and seizure. 07:01 MS/extremity: Positive for pain, of the left ring finger, Negative for decreased range of motion, deformity. 07:01 Skin: Positive for swelling, of the left ring finger. 07:01 All other systems are negative. Exam: 07:01 Constitutional: This is a well developed, well nourished patient who is awake, alert, pm1 and in no acute distress. Head/Face: Normocephalic, atraumatic. 07:01 Cardiovascular: Exam negative for acute changes, Rate: normal, Rhythm: regular, Pulses: no pulse deficits are appreciated. 07:01 Respiratory: Exam negative for acute changes, respiratory distress, shortness of breath. 07:01 Eyes: Exam is negative for acute changes, Extraocular movements: no acute changes, pm1 Conjunctiva: no acute changes, no injection, Sclera: no acute changes, icterus, is not appreciated. 07:01 Musculoskeletal/extremity: Exam is negative for acute changes, Extremities: No range of motion issues left hand, specifically left ring finger with full range of motion, Circulation is intact in all extremities. Sensation intact. Tenderness with palpation to medial side of left ring finger. 07:01 Skin: cellulitis, that is mild, on the Medial aspect of distal left ring finger, cuticle of left ring finger nail. 07:01 Neuro: Exam negative for acute changes, Orientation: is normal, Motor: is normal, moves all fours, Gait: is steady, at a normal pace, without difficulty. Vital Signs: 06:40 BP 158 / 102; Pulse 73; Resp 18; Temp 97.9; Pulse Ox 100% on R/A; Weight 132.45 kg; em Height 5 ft. 9 in. (175.26 cm); 06:40 Body Mass Index 43.12 (132.45 kg, 175.26 cm) em Procedures: 07:50 I \\T\\ D: Incision and drainage was performed for an abscess of the left left ring finger pm1 Prepped with Betadine, Anesthetized with 5 ml's 1% Lidocaine. Digital block. Incised with #11 blade. Drained No purulent drainage present, blood only the patient tolerated the procedure well. MDM: 06:52 Patient medically screened. pm1 07:50 Data reviewed: vital signs. Data interpreted: Pulse oximetry: on room air is 100 %. pm1 Interpretation: normal. Counseling: I had a detailed discussion with the patient and/or guardian regarding: the historical points, exam findings, and any diagnostic results supporting the discharge/admit diagnosis, the need for outpatient follow up, a hand specialist, to return to the emergency department if symptoms worsen or persist or if there are any questions or concerns that arise at home. 08:01 ED course: SEAMER aware reviewed. Patient found without any prescriptions. pm1 09:03 ED course: In reviewing chart, diagnoses should be cellulitis of left ring finger pm1 -paronychia. Administered Medications: 07:09 Drug: Tetanus-Diphtheria Toxoid Adult 0.5 ml {Leather Drier: [employer]. Exp: bb 12/29/2022. Lot #: [id number]. } Route: IM; Site: right deltoid; 07:48 Follow up: Response: No adverse reaction ss 07:09 Drug: [place] (HYDROcodone-acetaminophen) 10 mg-325 mg 1 tabs {Note: RASS 0.} Route: PO; bb 07:47 Follow up: Response: No adverse reaction ss 07:30 Drug: Lidocaine (1 %) 5 ml {Note: Administered by NAKITA Flaherty to affected area .} ss Volume: 5 ml; Route: Infiltration; Disposition: 04/22 06:45 Co-signature as Attending Physician, Gonzalo Hdez MD. mh7 Disposition Summary: 04/21/21 07:53 Discharge Ordered Location: Home pm1 Problem: new pm1 Symptoms: have improved pm1 Condition: Stable pm1 Diagnosis - Cellulitis of left finger - paronychia left index finger pm1 Followup: pm1 - With: Emergency Department - When: As needed - Reason: Worsening of condition Followup: pm1 - With: Jayy Waterman MD - When: 2 - 3 days - Reason: Recheck today's complaints, Continuance of care, Re-evaluation by your physician Discharge Instructions: - Discharge Summary Sheet pm1 - Paronychia, [id number] pm1 Forms: - Medication Reconciliation Form pm1 - Thank You Letter pm1 - Antibiotic Education pm1 - Prescription Opioid Use pm1 Prescriptions: - Cephalexin 500 mg Oral Capsule - take 1 capsule by ORAL route every 6 hours for 10 days; 40 capsule; Refills: 0, pm1 Product Selection Permitted - Bactrim DS 800-160 mg Oral Tablet - take 1 tablet by ORAL route every 12 hours for 10 days; 20 tablet; Refills: 0, pm1 Product Selection Permitted - acetaminophen-codeine 300-15 mg Oral tablet - take 2 tablet by ORAL route every 6 hours As needed; 20 tablet; Refills: 0, pm1 Product Selection Permitted Signatures: Hari Coffey, RN RN Deborah Santillan RN RN Maryam Donahue RN RN ss Reynold Brown, AUTOMOTIVE ENGINEER AUTOMOTIVE ENGINEER pm1 Gonzalo Hdez MD MD mh7
--- NOTE | 2021-04-21 07:54 | ER ---
Nurse's Notes [facility] Name: Dakota Escalera Age: 61 yrs Sex: Male : 1960 Arrival Date: 04/21/2021 Time: 05:57 Bed DX1 Private MD: Diagnosis: Cellulitis of left finger-paronychia left index finger Presentation: 04/21 06:40 Chief complaint: Patient states: left ring finger infection for 3 days, denies fever. em Coronavirus screen: Client denies travel out of the [place] in the last 14 days. Ebola Screen: Patient negative for fever greater than or equal to 101.5 degrees Fahrenheit, and additional compatible Ebola Virus Disease symptoms Patient denies exposure to infectious person. Patient denies travel to an Ebola-affected area in the 21 days before illness onset. No symptoms or risks identified at this time. Initial Sepsis Screen: Does the patient meet any 2 criteria? No. Patient's initial sepsis screen is negative. Does the patient have a suspected source of infection? Yes: Skin breakdown/wound. Risk Assessment: Do you want to hurt yourself or someone else? Patient reports no desire to harm self or others. Onset of symptoms was April 21, 2021. 06:40 Method Of Arrival: Ambulatory em 06:40 Acuity: ADENIKE 4 em Historical: - Allergies: 06:43 PENICILLINS; em - PMHx: 06:43 Diabetes - NIDDM; Hypothyroidism; em - PSHx: 06:43 "mass from vocal chords"; em - Immunization history:: Adult Immunizations up to date. - Social history:: Smoking status: Patient denies any tobacco usage or history of. Screenin:40 Abuse screen: Denies threats or abuse. Nutritional screening: No deficits noted. em Tuberculosis screening: No symptoms or risk factors identified. Fall Risk None identified. Assessment: 06:40 General: Appears in no apparent distress. comfortable, Behavior is calm, cooperative, em appropriate for age. Pain: Complains of pain in left ring fingernail. Neuro: Level of Consciousness is awake, alert, obeys commands, Oriented to person, place, time, situation, Appropriate for age. Cardiovascular: Capillary refill < 3 seconds Patient's skin is warm and dry. Respiratory: Airway is patent Respiratory effort is even, unlabored, Respiratory pattern is regular, symmetrical. Derm: Wound noted left ring fingernail. Musculoskeletal: Swelling present in left ring fingernail. Vital Signs: 06:40 BP 158 / 102; Pulse 73; Resp 18; Temp 97.9; Pulse Ox 100% on R/A; Weight 132.45 kg; em Height 5 ft. 9 in. (175.26 cm); 06:40 Body Mass Index 43.12 (132.45 kg, 175.26 cm) em ED Course: 05:57 Patient arrived in ED. bp1 06:40 Patient has correct armband on for positive identification. Adult w/ patient. em 06:43 Triage completed. em 06:43 Arm band placed on. em 06:50 Reynold Brown NP is PHCP. pm1 06:50 Gonzalo Hdez MD is Attending Physician. pm1 07:47 Maryam Sykes RN is Primary Nurse. ss 07:53 Jayy Waterman MD is Referral Physician. pm1 08:19 No provider procedures requiring assistance completed. Patient did not have IV access ss during this emergency room visit. Administered Medications: 07:09 Drug: Tetanus-Diphtheria Toxoid Adult 0.5 ml {Poll Watcher: [employer]. Exp: bb 12/29/2022. Lot #: [id number]. } Route: IM; Site: right deltoid; 07:48 Follow up: Response: No adverse reaction ss 07:09 Drug: [place] (HYDROcodone-acetaminophen) 10 mg-325 mg 1 tabs {Note: RASS 0.} Route: PO; bb 07:47 Follow up: Response: No adverse reaction ss 07:30 Drug: Lidocaine (1 %) 5 ml {Note: Administered by NAKITA Flaherty to affected area .} ss Volume: 5 ml; Route: Infiltration; Outcome: 07:53 Discharge ordered by . pm1 08:19 Discharged to home ambulatory, with family. ss 08:19 Condition: good 08:19 Discharge instructions given to patient, Instructed on discharge instructions, follow up and referral plans. Demonstrated understanding of instructions, follow-up care. 08:20 Patient left the ED. ss Signatures: Hari Coffey RN RN Deborah Maravilla RN RN bb Maryam Sykes RN RN Reynold Brown NP [employer] pm1 Diane Quintero bp1
[2021-04-21 08:25] VITALS: BP 158/102; TEMP 97.9; O2SAT 100
== END 2021-04-21 08:20 | disposition home or self-care (01) ==
LOC: ER 05:53
PROC: 0J9K0ZZ Drainage of Left Hand Subcutaneous Tissue and Fascia, Open Approach (ICD-10-PCS; principal; 2021-04-21)
DX: L03.012 Cellulitis of left finger (principal); Z23 Encounter for immunization; Z88.0 Allergy status to penicillin
CPT/HCPCS: 90471; 90714; 99283

== ENCOUNTER 2021-12-22 10:35 | Emergency (ER) | payer BC, OTHER ==
--- NOTE | 2021-12-22 12:15 | RAD REPORT ---
EXAM DESCRIPTION: CT - Head Brain Wo Cont - 12/22/2021 12:02 pm CLINICAL HISTORY: Dizziness, non-specific COMPARISON: No comparisons TECHNIQUE: All CT scans are performed using dose optimization technique as appropriate and may inclu de automated exposure control or mA/KV adjustment according to patient size. FINDINGS: No intracranial hemorrhage, hydrocephalus or extra-axial fluid collection.No areas of brai n edema or evidence of midline shift. The paranasal sinuses and mastoids are clear. The calvarium is intact. Partially imaged low-density l esion at the maxilla probably a benign odontogenic lesion of little clinical significance. IMPRESSION: No acute intracranial abnormality.
[2021-12-22 12:38] LABS: Absolute Lymphocytes (CBC) 1.2 K/uL (0.7-4.9); Hematocrit 51.2 % (39.6-49.0); Lymphocytes % 19.4 % (15.3-44.8); MPV 8.4 fL (7.6-11.3); RBC Red Blood Cell Count 5.52 M/uL (4.33-5.43)
[2021-12-22 12:42] LABS: Protime INR 0.97
--- NOTE | 2021-12-22 12:45 | RAD REPORT ---
EXAM DESCRIPTION: RAD - Knee Left 3 View - 12/22/2021 12:39 pm CLINICAL HISTORY: PAIN COMPARISON: No comparisons FINDINGS: No acute fracture. No malalignment. Chondrocalcinosis the mediolateral compartments. Small knee effusion . IMPRESSION: No acute osseous abnormality involving the left knee. Nonspecific knee effusion which ma y be related underlying degenerative changes.
--- NOTE | 2021-12-22 12:46 | RAD REPORT ---
EXAM DESCRIPTION: RAD - Chest Single View - 12/22/2021 12:39 pm CLINICAL HISTORY: dizziness COMPARISON: Chest Single View dated 02/18/2019 FINDINGS: Lines: None. Lungs: No evidence of edema or pneumonia. Pleural: No significant pleural effusions or pneumothorax. Cardiac: Cardiomegaly. Bones: No acute fractures. Other: IMPRESSION: No acute cardiopulmonary disease.
[2021-12-22 12:58] LABS: ALT/SGPT 78 U/L (12-78); Albumin 3.4 g/dL (3.4-5.0); Alkaline Phosphatase 84 U/L (45-117); BUN Blood Urea Nitrogen 13 mg/dL (7-18); Bicarbonate 26 mmol/L (21-32); Bilirubin Direct 0.2 mg/dL (0-0.2); Bilirubin Total 0.8 mg/dL (0.2-1.0); Glucose Level 173 mg/dL (74-106); NT PRO-BNP 48 pg/mL (<125); Protein, Total 7.7 g/dL (6.4-8.2); Sodium Level 140 mmol/L (136-145); Troponin High Sensitivity 4.4 pg/mL (<58.9)
[2021-12-22 12:59] LABS: AST/SGOT 49 U/L (15-37); Magnesium 2.1 mg/dL (1.8-2.4); Potassium 4.4 mmol/L (3.5-5.1)
[2021-12-22] MEDS ORDERED: HYDROCODONE/APAP 10/325 TAB ONE (13:47)
--- NOTE | 2021-12-22 14:15 | ER ---
Nurse's Notes [facility] Name: Dakota Escalera Age: 61 yrs Sex: Male : 1960 Arrival Date: 12/22/2021 Time: 10:37 Bed 20 Private MD: Estrada Zhou Diagnosis: Benign paroxysmal vertigo, unspecified ear;Unspecified internal derangement of left knee;Fall on same level, unspecified Presentation: 12/22 10:59 Chief complaint: Patient states: Reports intermittent dizziness x 2 months, got dizzy 4 jl7 days ago, slipped on a backpack strap and hurt left knee. Coronavirus screen: At this time, the client does not indicate any symptoms associated with coronavirus-19. Ebola Screen: No symptoms or risks identified at this time. Initial Sepsis Screen: Does the patient meet any 2 criteria? No. Patient's initial sepsis screen is negative. Does the patient have a suspected source of infection? No. Patient's initial sepsis screen is negative. Risk Assessment: Do you want to hurt yourself or someone else? Patient reports no desire to harm self or others. Onset of symptoms is unknown. Care prior to arrival: None. 10:59 Method Of Arrival: Wheelchair jl7 10:59 Acuity: ADENIKE 3 jl7 Triage Assessment: 11:01 General: Appears in no apparent distress. uncomfortable, Behavior is calm, cooperative, jl7 appropriate for age. Pain: Complains of pain in left knee. Historical: - Allergies: 11:01 PENICILLINS; jl7 - Home Meds: 11:01 aspirin 81 mg Oral chew [Active]; Jardiance 25 mg oral tab [Active]; levothyroxine 200 jl7 mcg oral tab [Active]; Victoza 2-Raymundo 0.6 mg/0.1 mL (18 mg/3 mL) subcutaneous pnij [Active]; B12 Active 1,000 mcg oral chew [Active]; - PMHx: 11:01 Diabetes - NIDDM; Hypothyroidism; jl7 - PSHx: 11:01 "mass from vocal chords"; jl7 - Immunization history:: Client reports receiving the 2nd dose of the Covid vaccine. - Social history:: Smoking status: Patient/guardian denies using tobacco. Screenin:32 Abuse screen: Denies threats or abuse. Nutritional screening: No deficits noted. aa5 Tuberculosis screening: No symptoms or risk factors identified. Fall Risk Fall in past 12 months (25 points). IV access (20 points). Total Ortiz Fall Scale indicates High Risk Score (45 or more points). Fall prevention measures have been instituted. Side Rails Up X 2 Placed Close to Nursing Station. Assessment: 12:00 General: Appears comfortable, Behavior is calm, cooperative. Pain: Complains of pain in aa5 left knee Pain currently is 6 out of 10 on a pain scale. Neuro: Level of Consciousness is awake, alert, obeys commands, Oriented to person, place, time, situation, Director Strategic [employer] Management are equal bilaterally Moves all extremities. Speech is normal, Facial symmetry appears normal, Pupils are PERRLA, Reports intermittent dizziness and headaches that began 3 months ago. Pt wears glasses and states last eye exam was 3 years ago. . Cardiovascular: Heart tones S1 S2 present Rhythm is regular. Respiratory: Airway is patent Respiratory effort is even, unlabored, Respiratory pattern is regular, symmetrical, Breath sounds are clear bilaterally. GI: Abdomen is obese, Bowel sounds present X 4 quads. Abd is non tender X 4 quads Patient currently denies nausea, vomiting. : No signs and/or symptoms were reported regarding the genitourinary system. EENT: No signs and/or symptoms were reported regarding the EENT system. Derm: Skin is pink, warm \\T\\ dry. Musculoskeletal: Range of motion: intact in all extremities. 13:45 Reassessment: Patient is alert, oriented x 3, equal unlabored respirations, skin aa5 warm/dry/pink. 14:50 Reassessment: Patient is alert, oriented x 3, equal unlabored respirations, skin aa5 warm/dry/pink. 14:50 Reassessment: knee immobilizer to left knee . aa5 Vital Signs: 10:59 BP 127 / 85; Pulse 89; Resp 17; Temp 98.7; Pulse Ox 94% on R/A; Weight 134.26 kg; jl7 Height 5 ft. 9 in. (175.26 cm); Pain 7/10; 13:00 BP 105 / 73; Pulse 93; Resp 20 S; Pulse Ox 94% on R/A; aa5 14:00 BP 103 / 57; Pulse 93; Resp 18 S; Pulse Ox 95% on R/A; aa5 10:59 Body Mass Index 43.71 (134.26 kg, 175.26 cm) jl7 ED Course: 10:37 Patient arrived in ED. am2 10:37 Estrada Zhou DO is Private Physician. am2 10:59 Cielo Orr, JONO is Primary Nurse. jl7 11:01 Triage completed. jl7 11:01 Arm band placed on right wrist. jl7 11:04 Reynold Brown NP is PHCP. pm1 11:04 Kong Angela MD is Attending Physician. pm1 12:04 CT Head Brain wo Cont In Process Unspecified. EDMS 12:30 Bed in low position. Call light in reach. Side rails up X 1. Door closed. Noise mb7 minimized. Warm blanket given. 12:30 Inserted saline lock: 20 gauge in left antecubital area, using aseptic technique. Blood mb7 collected. 12:32 EKG done. EKG done, by ED staff, reviewed by Reynold Brown NP. mb7 12:41 Knee Left 3 View XRAY In Process Unspecified. EDMS 12:41 XRAY Chest (1 view) In Process Unspecified. EDMS 12:41 No provider procedures requiring assistance completed. aa5 14:14 Dakota Cortez MD is Referral Physician. pm1 14:50 IV discontinued, intact, bleeding controlled, No redness/swelling at site. Pressure aa5 dressing applied. Administered Medications: 13:45 Drug: [place] (HYDROcodone-acetaminophen) 10 mg-325 mg 1 tabs Route: PO; aa5 14:50 Follow up: Response: No adverse reaction aa5 Outcome: 14:14 Discharge ordered by . pm1 14:50 Discharged to home ambulatory, with family. aa5 14:50 Condition: stable 14:50 Discharge instructions given to patient, Instructed on discharge instructions, follow up and referral plans. medication usage, Demonstrated understanding of instructions, follow-up care, medications, Prescriptions given X 2. 14:52 Patient left the ED. aa5 Signatures: Dispatcher [employer] EDMS Ramandeep Mcdaniel RN RN aa5 Reynold Brown NP NURSING ATTENDANT pm1 Cielo Orr RN RN jl7 Moriah Elizondo am2 Raven Dunham mb7 Corrections: (The following items were deleted from the chart) 12:32 12:30 EKG done, by ED staff, reviewed by Kong Angela MD mb7 mb7 14:55 12:00 Pain: Denies pain. aa5 aa5
--- NOTE | 2021-12-22 14:15 | EDPHYS ---
Physician Documentation [facility] Name: Dakota Escalera Age: 61 yrs Sex: Male : 1960 Arrival Date: 12/22/2021 Time: 10:37 Bed 20 Private MD: Estrada Zhou ED Physician Kong Angela HPI: 12/22 11:49 This 61 yrs old Male presents to ER via Wheelchair with complaints of Knee Pain - left. pm1 11:49 The patient presents with pain, that is acute. The complaints affect the left knee. pm1 Context: The problem was sustained at home, resulted from the patient tripping, on back pack strap and fell. Resulting in pain to left knee pain to the lateral aspect of left knee and posterior aspect. Pain with bending knee. Onset: The symptoms/episode began/occurred today. Modifying factors: The symptoms are alleviated by remaining still, the symptoms are aggravated by weight bearing, bending knee. Associated signs and symptoms: Pertinent negatives calf tenderness, numbness, tingling. Treatment prior to arrival includes: no previous treatment. Severity of symptoms: in the emergency department the symptoms are unchanged. The patient has not experienced similar symptoms in the past. The patient has not recently seen a physician. Patient is also presenting to the ER with complaints of dizziness that comes and goes for the past couple months. Dizziness is exacerbated by changes in position from lying to sitting sitting to standing. Patient is is resolved with keeping his head still and closing his eyes. Patient reports that his last dizziness episode was 4 days ago. No complaints of chest pain or shortness of breath, nausea, vomiting, diaphoresis with his dizziness or prior to that. Historical: - Allergies: 11:01 PENICILLINS; jl7 - Home Meds: 11:01 aspirin 81 mg Oral chew [Active]; Jardiance 25 mg oral tab [Active]; levothyroxine 200 jl7 mcg oral tab [Active]; Victoza 2-Raymundo 0.6 mg/0.1 mL (18 mg/3 mL) subcutaneous pnij [Active]; B12 Active 1,000 mcg oral chew [Active]; - PMHx: 11:01 Diabetes - NIDDM; Hypothyroidism; jl7 - PSHx: 11:01 "mass from vocal chords"; jl7 - Immunization history:: Client reports receiving the 2nd dose of the Covid vaccine. - Social history:: Smoking status: Patient/guardian denies using tobacco. ROS: 11:49 Constitutional: Negative for fever, chills, and weight loss, Cardiovascular: Negative pm1 for chest pain, palpitations, and edema, Respiratory: Negative for shortness of breath, cough, wheezing, and pleuritic chest pain, Abdomen/GI: Negative for abdominal pain, nausea, vomiting, diarrhea, and constipation, Back: Negative for injury and pain. 11:49 Skin: Negative for injury, rash, and discoloration. 11:49 MS/extremity: Positive for pain, swelling, tenderness, of the left knee, Negative for deformity. 11:49 Neuro: Positive for dizziness, Negative for headache, numbness, tingling. 11:49 All other systems are negative. Exam: 11:49 Constitutional: This is a well developed, well nourished patient who is awake, alert, pm1 and in no acute distress. Head/Face: Normocephalic, atraumatic. 11:49 Abdomen/GI: Soft, non-tender, with normal bowel sounds. No distension or tympany. No guarding or rebound. No evidence of tenderness throughout. Back: No spinal tenderness. No costovertebral tenderness. Full range of motion. Skin: Warm, dry with normal turgor. Normal color with no rashes, no lesions, and no evidence of cellulitis. 11:49 Cardiovascular: Exam negative for acute changes, Rate: normal, Rhythm: regular, Pulses: no pulse deficits are appreciated, Heart sounds: normal. 11:49 Respiratory: Exam negative for acute changes, respiratory distress, shortness of breath, Breath sounds: are clear throughout. 11:49 Musculoskeletal/extremity: Extremities: grossly normal except: noted in the left knee: tenderness, pain with valgus stress test and rotation of lower leg medially and laterally. negative drawer tests. 11:49 Neuro: Exam negative for acute changes, Orientation: is normal, Mentation: is normal, Motor: is normal, moves all fours. Vital Signs: 10:59 BP 127 / 85; Pulse 89; Resp 17; Temp 98.7; Pulse Ox 94% on R/A; Weight 134.26 kg; jl7 Height 5 ft. 9 in. (175.26 cm); Pain 7/10; 13:00 BP 105 / 73; Pulse 93; Resp 20 S; Pulse Ox 94% on R/A; aa5 14:00 BP 103 / 57; Pulse 93; Resp 18 S; Pulse Ox 95% on R/A; aa5 10:59 Body Mass Index 43.71 (134.26 kg, 175.26 cm) jl7 MDM: 11:04 Patient medically screened. pm1 14:13 Data reviewed: vital signs. Counseling: I had a detailed discussion with the patient pm1 and/or guardian regarding: the historical points, exam findings, and any diagnostic results supporting the discharge/admit diagnosis, lab results, radiology results, the need for outpatient follow up, to return to the emergency department if symptoms worsen or persist or if there are any questions or concerns that arise at home. 12/22 11:44 Order name: Basic Metabolic Panel; Complete Time: 13:07 pm12/22 11:44 Order name: CBC with Diff; Complete Time: 12:55 pm12/22 11:44 Order name: LFT's; Complete Time: 13:07 pm12/22 11:44 Order name: Magnesium; Complete Time: 13:07 pm12/22 11:44 Order name: NT PRO-BNP; Complete Time: 13:07 pm12/22 11:44 Order name: PT-INR; Complete Time: 12:55 pm12/22 11:44 Order name: Knee Left 3 View XRAY; Complete Time: 12:55 pm12/22 11:44 Order name: Troponin HS; Complete Time: 13:07 pm12/22 11:44 Order name: XRAY Chest (1 view); Complete Time: 12:55 pm12/22 11:44 Order name: EKG; Complete Time: 11:44 pm12/22 11:44 Order name: Cardiac monitoring; Complete Time: 12:40 pm12/22 11:44 Order name: EKG - Nurse/Tech; Complete Time: 12:40 pm12/22 11:44 Order name: CT Head Brain wo Cont; Complete Time: 12:28 pm12/22 11:44 Order name: IV Saline Lock; Complete Time: 12:40 pm12/22 11:44 Order name: Labs collected and sent; Complete Time: 12:40 pm12/22 11:44 Order name: O2 Per Protocol; Complete Time: 12:40 pm1 12/22 11:44 Order name: O2 Sat Monitoring; Complete Time: 12:40 pm1 12/22 13:56 Order name: Knee Immobilizer; Complete Time: 14:52 pm1 Administered Medications: 13:45 Drug: [place]play (HYDROcodone-acetaminophen) 10 mg-325 mg 1 tabs Route: PO; aa5 14:50 Follow up: Response: No adverse reaction aa5 Disposition Summary: 12/22/21 14:14 Discharge Ordered Location: Home pm1 Problem: new pm1 Symptoms: have improved pm1 Condition: Stable pm1 Diagnosis - Benign paroxysmal vertigo, unspecified ear pm1 - Unspecified internal derangement of left knee pm1 - Fall on same level, unspecified pm1 Followup: pm1 - With: Emergency Department - When: As needed - Reason: Worsening of condition Followup: pm1 - With: Dakota Cortez MD - When: 2 - 3 days - Reason: Recheck today's complaints, Continuance of care, Re-evaluation by your physician Discharge Instructions: - Discharge Summary Sheet pm1 - Benign Positional Vertigo pm1 - Crutch Use, Adult pm1 - How to Use a Knee Immobilizer pm1 Forms: - Medication Reconciliation Form pm1 - Thank You Letter pm1 - Antibiotic Education pm1 - Prescription Opioid Use pm1 Prescriptions: - Meclizine 25 mg Oral Tablet - take 1 tablet by ORAL route every 8 hours As needed; 30 tablet; Refills: 0, pm1 Product Selection Permitted - Tylenol-Codeine #3 300 mg-30 mg Oral - take 2 tablet by ORAL route every 6 hours As needed; 20 tablet; Refills: 0, pm1 Product Selection Permitted Addendum: 12/28/2021 07:56 Co-signature as Attending Physician, Kong Angela MD I agree with the assessment and c vilchis plan of care. Signatures: Dispatcher [employer] Kong Bell MD MD cha Calderon, Audri, RN RN aa5 Reynold Brown NP SOFTWARE VALIDATION TECHNICIAN pm1 Cielo Orr RN RN jl7 Corrections: (The following items were deleted from the chart) 12/22 14:52 13:56 Crutches ordered. pm1 aa5
[2021-12-22 16:04] VITALS: BP 127/85; TEMP 98.7; O2SAT 94
== END 2021-12-22 14:52 | disposition home or self-care (01) ==
LOC: ER 10:35
DX: M23.92 Unspecified internal derangement of left knee (principal); H81.10 Benign paroxysmal vertigo, unspecified ear; W01.0XXA Fall on same level from slipping, tripping and stumbling without subsequent striking against object, initial encounter; Y92.009 Unspecified place in unspecified non-institutional (private) residence as the place of occurrence of the external cause; E11.9 Type 2 diabetes mellitus without complications; E03.9 Hypothyroidism, unspecified; Z79.82 Long term (current) use of aspirin; Z79.4 Long term (current) use of insulin; Z88.0 Allergy status to penicillin
CPT/HCPCS: 36415; 70450; 71045; 80048; 80076; 83735; 83880; 84484; 85025; 85610; 93005; 99284

== ENCOUNTER 2024-02-29 08:59 | Emergency (ER) | payer OTHER ==
[2024-02-29] MEDS ORDERED: HYDROCODONE/APAP 7.5/325 MG TAB ONE (09:27)
[2024-02-29] MEDS ORDERED: KETOROLAC 30 MG/ML INJ ONE (09:27)
--- NOTE | 2024-02-29 10:05 | RAD REPORT ---
EXAM DESCRIPTION: RAD - Knee Right 3 View - 02/29/2024 9:59 am CLINICAL HISTORY: PAIN COMPARISON: No comparisonsNo comparisons FINDINGS/IMPRESSION: No acute fracture. No malalignment. Chondrocalcinosis in the medial and lateral compartments.
--- NOTE | 2024-02-29 10:34 | ER ---
Nurse's Notes [facility] Name: Dakota Escalera Age: 64 yrs Sex: Male : 1960 Arrival Date: 02/29/2024 Time: 08:59 Bed 16 Private MD: Diagnosis: Sprain of unspecified site of right knee, initial encounter Presentation: 02/28 09:14 Chief complaint: Right knee pain 8/10 after mechanical fall from standing 3 days ago. hb Coronavirus screen: At this time, the client does not indicate any symptoms associated with coronavirus-19. Ebola Screen: No symptoms or risks identified at this time. Initial Sepsis Screen: Does the patient meet any 2 criteria? No. Patient's initial sepsis screen is negative. Does the patient have a suspected source of infection? No. Patient's initial sepsis screen is negative. Risk Assessment: Do you want to hurt yourself or someone else? Patient reports no desire to harm self or others. Onset of symptoms was February 26, 2024. 09:14 Method Of Arrival: Ambulatory hb 09:14 Acuity: ADENIKE 4 hb Triage Assessment: 09:18 General: Appears in no apparent distress. Behavior is calm, cooperative. Pain: Pain hb currently is 8 out of 10 on a pain scale. Neuro: Level of Consciousness is awake, alert, obeys commands, Oriented to person, place, time, situation. Cardiovascular: Patient's skin is warm and dry. Musculoskeletal: Reports right knee pain. Historical: - Allergies: 09:16 PENICILLINS; hb - Home Meds: 09:16 aspirin 81 mg Oral chew [Active]; B12 Active 1 Oral chew [Active]; Jardiance 25 mg Oral hb tab [Active]; levothyroxine 200 mcg tab [Active]; Victoza 2-Raymundo 0.6 mg/0.1 mL (18 mg/3 mL) subcutaneous pnij [Active]; - PMHx: 09:16 Diabetes - NIDDM; Hypothyroidism; hb - Immunization history:: Adult Immunizations up to date. - Infectious Disease History:: Denies. - Social history:: Smoking status: Patient/guardian denies using tobacco. Screenin:45 [facility] ED Fall Risk Assessment (Adult) History of falling in the last 3 months, db including since admission No falls in past 3 months (0 pts) Confusion or Disorientation No (0 pts) Intoxicated or Sedated No (0 pts) Impaired Gait Yes (1 pt) Mobility Assist Device Used No (0 pt) Altered Elimination No (0 pt) Score/Fall Risk Level 0 - 2 = Low Risk Oriented to surroundings, Maintained a safe environment. Abuse screen: Denies threats or abuse. Denies injuries from another. Nutritional screening: No deficits noted. Tuberculosis screening: No symptoms or risk factors identified. Assessment: 09:45 Reassessment: Patient appears in no apparent distress at this time. Patient and/or db family updated on plan of care and expected duration. Pain level reassessed. Patient is alert, oriented x 3, equal unlabored respirations, skin warm/dry/pink. RIGHT KNEE PAIN SINCE YESTERDAY. General: Appears in no apparent distress. comfortable, Behavior is calm, cooperative. Pain: Complains of pain in right knee. Neuro: Level of Consciousness is awake, alert, obeys commands, Oriented to person, place, time, situation. Respiratory: Airway is patent Respiratory effort is even, unlabored, Respiratory pattern is regular, symmetrical. Musculoskeletal: Circulation, motion, and sensation intact. Capillary refill < 3 seconds, Range of motion: limited in right knee. 11:00 Reassessment: Patient appears in no apparent distress at this time. Patient and/or db family updated on plan of care and expected duration. Pain level reassessed. Patient is alert, oriented x 3, equal unlabored respirations, skin warm/dry/pink. Patient states feeling better. Patient states symptoms have improved. Vital Signs: 09:14 BP 143 / 100; Pulse 90; Resp 20; Temp 97.9(TE); Pulse Ox 96% on R/A; Weight 133.81 kg; hb Height 5 ft. 9 in. ; Pain 8/10; 10:00 BP 148 / 93; Pulse 76; Resp 18; Pulse Ox 95% on R/A; db 11:00 BP 148 / 93; Pulse 79; Resp 18; Pulse Ox 95% ; db 09:14 Body Mass Index 43.56 (133.81 kg, 175.26 cm) hb 09:14 Pain Scale: Adult hb ED Course: 09:03 Patient arrived in ED. im 09:03 Genoveva Torres PA-C is PHCP. sb4 09:03 Nestor Silva MD is Attending Physician. sb4 09:12 Anastacia Dobbs, RN is Primary Nurse. db 09:15 Triage completed. hb 09:18 Arm band placed on. hb 09:47 Patient has correct armband on for positive identification. Bed in low position. Call db light in reach. Side rails up X 1. Pulse ox on. NIBP on. Pillow given. 10:01 Knee Right 3 View XRAY In Process Unspecified. EDMS 10:33 Dakota Cortez MD is Referral Physician. sb4 11:05 Crutch training done. Knee immobilizer applied on right knee. db 11:19 Provided Education on: DISCHARGE. db 11:19 No provider procedures requiring assistance completed. Patient did not have IV access db during this emergency room visit. Administered Medications: 09:30 Drug: Hydrocodone-Acetaminophen PO (7.5 mg-325 mg) 1 tabs PO once Route: PO; db 10:59 Follow up: Response: No adverse reaction db 09:30 Drug: Ketorolac IM 30 mg IM once Route: IM; Site: left deltoid; db 10:59 Follow up: Response: No adverse reaction db Medication: 09:45 VIS not applicable for this client. db Outcome: 10:34 Discharge ordered by . sb4 11:19 Discharged to home via wheelchair, with family, db 11:19 Condition: stable 11:19 Discharge instructions given to patient, Instructed on discharge instructions, follow up and referral plans. Prescriptions given X 1, 11:19 Demonstrated understanding of instructions, crutch walking, db 11:21 Patient left the ED. db Signatures: Dispatcher [employer] EDAR Vi Boudreaux RN RN Anastacia Dobbs, RN RN Genoveva Torers PA-C PAОлег sb4 Vanita Goff im
--- NOTE | 2024-02-29 10:35 | EDPHYS ---
Physician Documentation [facility] Name: Dakota Escalera Age: 64 yrs Sex: Male : 1960 Arrival Date: 02/29/2024 Time: 08:59 Bed 16 Private MD: ED Physician Nestor Silva HPI: 02/28 09:37 This 64 yrs old Male presents to ER via Ambulatory with complaints of Knee Injury. sb4 09:38 The patient presents with an injury, pain, that is acute. The complaints affect the sb4 right knee. Context: resulted from the patient falling, the patient can fully bear weight, the patient is able to ambulate, Problem is a result from a previous injury: No. Onset: The symptoms/episode began/occurred 4 day(s) ago. Modifying factors: The symptoms are alleviated by nothing. the symptoms are aggravated by movement, weight bearing. Associated signs and symptoms: The patient has no apparent associated signs or symptoms. Treatment prior to arrival includes: over the counter medications. The patient has not experienced similar symptoms in the past. The patient has not recently seen a physician. Historical: - Allergies: 09:16 PENICILLINS; hb - Home Meds: 09:16 aspirin 81 mg Oral chew [Active]; B12 Active 1 Oral chew [Active]; Jardiance 25 mg Oral hb tab [Active]; levothyroxine 200 mcg tab [Active]; Victoza 2-Raymundo 0.6 mg/0.1 mL (18 mg/3 mL) subcutaneous pnij [Active]; - PMHx: 09:16 Diabetes - NIDDM; Hypothyroidism; hb - Immunization history:: Adult Immunizations up to date. - Infectious Disease History:: Denies. - Social history:: Smoking status: Patient/guardian denies using tobacco. ROS: 09:38 Constitutional: Negative for fever, chills, and weight loss, sb4 09:38 MS/extremity: Positive for injury or acute deformity, pain, tenderness, of the right knee, 09:38 All other systems are negative, Exam: 09:40 Head/Face: Normocephalic, atraumatic. Eyes: Extra-ocular motions intact. Periorbital sb4 areas with no swelling, redness, or edema. ENT: Mucous membranes moist. Skin: Warm, dry with normal turgor. Normal color with no rashes, no lesions, and no evidence of cellulitis. 09:40 Constitutional: The patient appears in no acute distress, alert, awake, obese, 09:40 Musculoskeletal/extremity: ROM: limited active range of motion due to pain, limited passive range of motion due to pain, in the right leg, Circulation is intact in all extremities. Pulses: are normal with no appreciated deficits, Perfusion: the extremity is normally perfused throughout, Calf tenderness, is absent, Edema, is not appreciated, Sensation intact. Weight bearing: able to fully bear weight, Vital Signs: 09:14 BP 143 / 100; Pulse 90; Resp 20; Temp 97.9(TE); Pulse Ox 96% on R/A; Weight 133.81 kg; hb Height 5 ft. 9 in. ; Pain 8/10; 10:00 BP 148 / 93; Pulse 76; Resp 18; Pulse Ox 95% on R/A; db 11:00 BP 148 / 93; Pulse 79; Resp 18; Pulse Ox 95% ; db 09:14 Body Mass Index 43.56 (133.81 kg, 175.26 cm) hb 09:14 Pain Scale: Adult hb MDM: 09:04 Patient medically screened. sb4 09:40 Differential diagnosis: sprain, strain, fracture. sb4 10:33 Data reviewed: vital signs, nurses notes, radiologic studies, and as a result, I will sb4 discharge patient. Counseling: I had a detailed discussion with the patient and/or guardian regarding the historical points, exam findings, and any diagnostic results supporting the discharge/admit diagnosis, radiology results, the need for outpatient follow up, a orthopedic surgeon, to return to the emergency department if symptoms worsen or persist or if there are any questions or concerns that arise at home. 02/28 09:22 Order name: Knee Right 3 View XRAY; Complete Time: 10:07 sb4 02/28 10:33 Order name: Knee Immobilizer; Complete Time: 11:21 sb4 02/28 10:33 Order name: Crutches; Complete Time: 11:21 sb4 Administered Medications: 09:30 Drug: Hydrocodone-Acetaminophen PO (7.5 mg-325 mg) 1 tabs PO once Route: PO; db 10:59 Follow up: Response: No adverse reaction db 09:30 Drug: Ketorolac IM 30 mg IM once Route: IM; Site: left deltoid; db 10:59 Follow up: Response: No adverse reaction db Disposition: 17:59 Co-signature as Attending Physician, Nestor Silva MD I reviewed the patient's care rt provided by the Advanced Practice Provider and agree with the diagnosis and treatment plan. Disposition Summary: 02/29/24 10:34 Discharge Ordered Notes: Location: Home sb4 Problem: new sb4 Symptoms: have improved sb4 Condition: Stable sb4 Diagnosis - Sprain of unspecified site of right knee, initial encounter sb4 Followup: sb4 - With: Dakota Cortez MD - When: As needed - Reason: Further diagnostic work-up Discharge Instructions: - Discharge Summary Sheet sb4 - Knee Sprain, Adult, [id number] sb4 Forms: - Work release form db - Patient Portal Instructions sb4 - Leadership Thank You Letter sb4 Prescriptions: - meloxicam 7.5 mg Oral tablet - take 1 tablet ORAL route daily; 20 tablet; Refills: 0, Product Selection sb4 Permitted Signatures: Dispatcher [employer] Vi Au RN RN Anastacia Dobbs RN RN Genoveva Cardona, PA-C PA-C sb4 Nestor Silva MD MD rt
[2024-02-29 12:27] VITALS: BP 148/93; TEMP 97.9; O2SAT 95
== END 2024-02-29 11:21 | disposition home or self-care (01) ==
LOC: ER 08:59
DX: S83.91XA Sprain of unspecified site of right knee, initial encounter (principal)
CPT/HCPCS: 96372; 99284

== ENCOUNTER 2024-05-05 20:19 | Emergency (ER) | payer OTHER ==
[2024-05-05] MEDS ORDERED: ONDANSETRON 4 MG/2 ML VIAL ONE (23:36)
[2024-05-05] MEDS ORDERED: HYDROMORPHONE HCL 1 MG/ML INJ ONE (23:37)
[2024-05-05] MEDS ORDERED: KETOROLAC 30 MG/ML INJ ONE (23:37)
[2024-05-05] MEDS ORDERED: DIAZEPAM 5 MG TABLET ONE (23:37)
[2024-05-05] MEDS ORDERED: NA CHLORIDE 0.9% 1,000 ML ONE (23:38)
[2024-05-06 01:07] LABS: PT Prothrombin Time 11.7 SECONDS (9.4-12.5); Protime INR 1.05
[2024-05-06 01:08] LABS: Absolute Eosinophils 0.3 K/uL (0-0.5); Absolute Lymphocytes (CBC) 1.5 K/uL (0.7-4.9); Absolute Monocytes 1.1 K/uL (0.1-1.3); Absolute Neutrophil 7.3 K/uL (1.8-8.0); Basophils % 0.5 % (0-1.3); Eosinophils % 2.7 % (0-4.4); Hematocrit 52.2 % (39.6-49.0); Hemoglobin 17.1 g/dL (13.6-17.9); MCH 30.4 pg (27.0-35.0); MCHC 32.8 g/dL (32.0-36.0); MCV 92.9 fL (80-100); MPV 8.7 fL (7.6-11.3); Monocytes % 10.4 % (3.3-12.3); Neutrophils % 71.4 % (41.7-73.7); Platelets 212 thou/uL (152-406); RBC Red Blood Cell Count 5.62 M/uL (4.33-5.43); Red Cell Distribution Width 14.5 % (12.1-15.2)
[2024-05-06 01:47] LABS: ALT/SGPT 46 U/L (16-61); Albumin/Globulin Ratio 0.8 (1.1-1.8); Alkaline Phosphatase 93 U/L (45-117); Anion Gap 5.4 mEq/L (5.0-15.0); BUN Blood Urea Nitrogen 18 mg/dL (7-18); Bicarbonate 29 mEq/L (21-32); Bilirubin Total 0.6 mg/dL (0.2-1.0); Glomerular Filtration Rate 101 ml/min (=/>90); Glucose Level 158 mg/dL (74-106); NT PRO-BNP 16 pg/mL (<125); Sodium Level 141 mEq/L (136-145); Troponin High Sensitivity 7.4 pg/mL (<58.9)
[2024-05-06 01:57] LABS: AST/SGOT 22 U/L (15-37); Bilirubin Direct < 0.2 mg/dL (0-0.2); Bilirubin Indirect, Calculated 0.4 mg/dL (0.2-0.8); Magnesium 1.8 mg/dL (1.6-2.4); Potassium 3.4 mEq/L (3.5-5.1)
--- NOTE | 2024-05-06 03:19 | EDPHYS ---
Physician Documentation [facility] Name: Dakota Escalera Age: 64 yrs Sex: Male : 1960 Arrival Date: 05/05/2024 Time: 20:19 Bed 6 Private MD: GERALDO Physician Kong Angela HPI: 05/06 02:36 This 64 yrs old Male presents to ER via Ambulatory with complaints of Leg stan Pain, Back Pain. 02:36 The patient presents with decreased range of motion, pain, that is acute. The stan complaints affect the right upper thigh and right quadriceps. Context: The problem was sustained at an unknown site, resulted from an unknown cause, the patient can fully bear weight. Onset: The symptoms/episode began/occurred 2 day(s) ago. Modifying factors: The symptoms are alleviated by remaining still, the symptoms are aggravated by movement, lifting. Associated signs and symptoms: Pertinent positives: none. Treatment prior to arrival includes: no previous treatment. Severity of symptoms: At their worst the symptoms were moderate, in the emergency department the symptoms are unchanged. The patient has experienced similar episodes in the past, a few times. Historical: - Allergies: 05/05 20:57 PENICILLINS; kj2 - PMHx: 20:57 Diabetes - NIDDM; Hypothyroidism; kj2 - Immunization history:: Adult Immunizations up to date. - Infectious Disease History:: Denies. - Social history:: Smoking status: Patient/guardian denies using tobacco, the patient reports quitting approximately 2 years ago. - Family history:: not pertinent. ROS: 05/06 02:36 Constitutional: Negative for fever, chills, and weight loss, Eyes: Negative for injury, stan pain, redness, and discharge, ENT: Negative for injury, pain, and discharge, Neck: Negative for injury, pain, and swelling, Cardiovascular: Negative for chest pain, palpitations, and edema, Respiratory: Negative for shortness of breath, cough, wheezing, and pleuritic chest pain, Abdomen/GI: Negative for abdominal pain, nausea, vomiting, diarrhea, and constipation, Back: Negative for injury and pain, : Negative for injury, bleeding, discharge, and swelling, Skin: Negative for injury, rash, and discoloration, Neuro: Negative for headache, weakness, numbness, tingling, and seizure, Psych: Negative for depression, anxiety, suicide ideation, homicidal ideation, and hallucinations, Allergy/Immunology: Negative for hives, rash, and allergies, Endocrine: Negative for neck swelling, polydipsia, polyuria, polyphagia, and marked weight changes, Hematologic/Lymphatic: Negative for swollen nodes, abnormal bleeding, and unusual bruising, MS/extremity: Positive for decreased range of motion, pain, of the right leg, Exam: 02:36 Constitutional: This is a well developed, well nourished patient who is awake, alert, stan and in no acute distress. Head/Face: Normocephalic, atraumatic. Eyes: Pupils equal round and reactive to light, extra-ocular motions intact. Lids and lashes normal. Conjunctiva and sclera are non-icteric and not injected. Cornea within normal limits. Periorbital areas with no swelling, redness, or edema. ENT: Nares patent. No nasal discharge, no septal abnormalities noted. Tympanic membranes are normal and external auditory canals are clear. Oropharynx with no redness, swelling, or masses, exudates, or evidence of obstruction, uvula midline. Mucous membranes moist. Neck: Trachea midline, no thyromegaly or masses palpated, and no cervical lymphadenopathy. Supple, full range of motion without nuchal rigidity, or vertebral point tenderness. No Meningismus. Chest/axilla: Normal chest wall appearance and motion. Nontender with no deformity. No lesions are appreciated. Cardiovascular: Regular rate and rhythm with a normal S1 and S2. No gallops, murmurs, or rubs. Normal PMI, no JVD. No pulse deficits. Respiratory: Lungs have equal breath sounds bilaterally, clear to auscultation and percussion. No rales, rhonchi or wheezes noted. No increased work of breathing, no retractions or nasal flaring. Abdomen/GI: Soft, non-tender, with normal bowel sounds. No distension or tympany. No guarding or rebound. No evidence of tenderness throughout. Back: No spinal tenderness. No costovertebral tenderness. Full range of motion. Male : Normal genitalia with no discharge or lesions. Skin: Warm, dry with normal turgor. Normal color with no rashes, no lesions, and no evidence of cellulitis. Neuro: Awake and alert, GCS 15, oriented to person, place, time, and situation. Cranial nerves II-XII grossly intact. Motor strength 5/5 in all extremities. Sensory grossly intact. Cerebellar exam normal. Normal gait. Psych: Awake, alert, with orientation to person, place and time. Behavior, mood, and affect are within normal limits. 02:36 ECG was reviewed by the Attending Physician. 02:36 Musculoskeletal/extremity: Extremities: grossly normal except: noted in the right leg: decreased ROM, pain, Circulation is intact in all extremities. Sensation intact. Weight bearing: able to fully bear weight, without difficulty, DVT Exam: no pain, no swelling, no tenderness, negative Homans' sign noted on exam, no appreciated bluish discoloration, no erythema, no increased warmth, Calves: are non-tender, have equal circumference, 03:20 Musculoskeletal/extremity: ROM: limited active range of motion due to pain, in the [facility] right leg, with lifting, Pulses: noted to be 4+ in the right femoral artery, right popliteal artery, right posterior tibial artery, right dorsalis pedis artery, left popliteal artery, left posterior tibial artery, left dorsalis pedis artery, bilateral radial, brachial, femoral, popliteal, posterior tibial and and dorsalis pedis arteries., Compartment Syndrome exam of affected extremity: is normal. Tendon exam: specific tendon testing normal through active and passive range of motion Vital Signs: 05/05 20:54 BP 116 / 74; Pulse 92; Resp 18; Temp 97.6; Pulse Ox 95% on R/A; Weight 134.26 kg; kj2 Height 5 ft. 9 in. ; Pain 8/10; 05/06 01:49 BP 92 / 52; Pulse 84; Resp 16; Pulse Ox 100% ; br2 04:09 BP 103 / 67; Pulse 84; Resp 18; Pulse Ox 90% ; br2 05:50 BP 111 / 61; Pulse 66; Resp 16; Pulse Ox 100% on R/A; br2 05/05 20:54 Body Mass Index 43.71 (134.26 kg, 175.26 cm) 2 05/05 20:54 Pain Scale: Adult kj2 MDM: 05/05 21:38 Patient medically screened. [facility] 05/06 03:19 Differential diagnosis: closed fracture, contusion, tendonitis. Data reviewed: vital [facility] signs, nurses notes, lab test result(s), EKG, radiologic studies, CT scan, plain films. Consideration of Admission/Observation Escalation of care including admission/observation considered. I considered the following discharge prescriptions or medication management in the emergency department Medications were administered in the Emergency Department. See MAR. Test considered but Not performed: MRI: no mri pelvis, right leg. Care significantly affected by the following chronic conditions: Diabetes, Hypertension, Obesity. Counseling: I had a detailed discussion with the patient and/or guardian regarding the historical points, exam findings, and any diagnostic results supporting the discharge/admit diagnosis, lab results, radiology results, the need for outpatient follow up, for definitive care, a family practitioner, a orthopedic surgeon. 05/05 23:11 Order name: Basic Metabolic Panel; Complete Time: 02:35 [facility] 05/05 23:11 Order name: CBC with Diff; Complete Time: 01:56 [facility] 05/05 23:11 Order name: LFT's; Complete Time: 02:35 [facility] 05/05 23:11 Order name: Magnesium; Complete Time: 02:35 [facility] 05/05 23:11 Order name: NT PRO-BNP; Complete Time: 02:35 [facility] 05/05 23:11 Order name: PT-INR; Complete Time: 01:56 [facility] 05/05 23:11 Order name: Troponin HS; Complete Time: 02:35 [facility] 05/05 23:11 Order name: XRAY Chest (1 view) [facility] 05/05 23:11 Order name: CT Abd/Pelvis - IV Contrast Only: go to mid thighs [facility] 05/05 23:11 Order name: Pelvis XRAY stan 05/06 02:44 Order name: US Extremity Venous W Compression Torin [facility] 05/05 23:11 Order name: Cardiac monitoring; Complete Time: 00:42 [facility] 05/05 23:11 Order name: EKG - Nurse/Tech; Complete Time: 00:41 [facility] 05/05 23:11 Order name: IV Saline Lock; Complete Time: 23:23 [facility] 05/05 23:11 Order name: Labs collected and sent; Complete Time: 23:23 [facility] 05/05 23:11 Order name: O2 Per Protocol; Complete Time: 23:15 [facility] 05/05 23:11 Order name: O2 Sat Monitoring; Complete Time: 23:15 [facility] EC:36 Rate is 84 beats/min. Rhythm is regular. QRS [place] is Normal. HI interval is normal. QRS stan interval is normal. QT interval is normal. No Q waves. T waves are Normal. No ST changes noted. Clinical impression: NSR w/ Non-specific ST/T Changes and No evidence of ischemia. Interpreted by me. Reviewed by me. Administered Medications: 05/05 23:43 Drug: NS 0.9% IV 1000 ml IV at 1 bolus Per protocol; 1000 mL bolus Route: IV; Rate: 1 me1 bolus; Site: right antecubital; 05/06 05:31 Follow up: IV Status: Completed infusion; IV Intake: 1000ml br2 05/05 23:43 Drug: HYDROmorphone IVP 1 mg IVP once Route: IVP; Site: right antecubital; in1 05/06 05:30 Follow up: Response: No adverse reaction; Pain is decreased br2 05/05 23:44 Drug: Ondansetron IVP 4 mg IVP once; over 2 minutes Route: IVP; Site: right antecubital;in1 05/06 05:30 Follow up: Response: No adverse reaction br2 05/05 23:44 Drug: Ketorolac IVP 30 mg IVP once Route: IVP; Site: right antecubital; in1 05/06 05:30 Follow up: Response: No adverse reaction br2 05/05 23:44 Drug: Diazepam PO 10 mg PO once Route: PO; in1 05/06 05:30 Follow up: Response: No adverse reaction br2 04:06 Drug: NS 0.9% IV 1000 ml IV at 1 bolus Per protocol; 1000 mL bolus Route: IV; Rate: 1 br2 bolus; Site: right antecubital; 05:28 Follow up: IV Status: Completed infusion; IV Intake: 1000ml br2 04:06 Drug: Potassium PO Effervescent Tablet 50 mEq PO once; dissolve in 4 ounces of water or br2 juice Route: PO; 05:28 Follow up: Response: No adverse reaction br2 Disposition Summary: 05/06/24 03:18 Discharge Ordered Notes: Location: Home stan Problem: new stan Symptoms: have improved stan Condition: Stable stan Diagnosis - Pain in right leg stan - Unspecified symptoms and signs involving the musculoskeletal system stan - Other cholelithiasis without obstruction stan Followup: stan - With: Private Physician - When: 2 - 3 days - Reason: Recheck today's complaints, Continuance of care, Re-evaluation by your physician Followup: stan - With: William Gaona MD - When: 2 - 3 days - Reason: Recheck today's complaints, Re-evaluation by your physician Discharge Instructions: - Discharge Summary Sheet stan - Musculoskeletal Pain stan - Cholelithiasis, [id number] [facility] Forms: - Medication Reconciliation Form stan - Antibiotic Education stan - Prescription Opioid Use stan - Patient Portal Instructions [facility] - Leadership Thank You Letter [facility] Prescriptions: - acetaminophen-codeine 300-30 mg Oral tablet - take 2 tablet ORAL route every 6 hours as needed for pain; 20 tablet; Refills: stan 0, Product Selection Permitted - Ibuprofen 600 mg Oral Tablet - take 1 tablet ORAL route every 6 hours As needed take with food; 30 tablet; stan Refills: 0, Product Selection Permitted Signatures: Dispatcher [employer] EDMS Kong Angela MD MD cha Eddleman, Michelle, RN RN me1 Aracely Maxwell RN RN br2 Raiza Gaming RN RN kj2 Corrections: (The following items were deleted from the chart) 05/05 23:12 23:12 Chest Single View+RAD.RAD.BRZ ordered. EDMS EDMS 23:12 23:12 Abdomen Pelvis W Con+CT.RAD.BRZ ordered. EDMS EDMS 23:12 23:12 Pelvis+RAD.RAD.BRZ ordered. EDMN EDMS 05/06 05:50 03:16 Crutches ordered. stan br2
--- NOTE | 2024-05-06 03:19 | ER ---
Nurse's Notes [facility] Name: Dakota Escalera Age: 64 yrs Sex: Male : 1960 Arrival Date: 05/05/2024 Time: 20:19 Bed 6 Private MD: Diagnosis: Pain in right leg;Unspecified symptoms and signs involving the musculoskeletal system;Other cholelithiasis without obstruction Presentation: 05/05 20:54 Chief complaint: Patient states: he can not move his right leg since 1500 pm this kj2 afternoon. Started having leg spasms. Coronavirus screen: At this time, the client does not indicate any symptoms associated with coronavirus-19. Ebola Screen: No symptoms or risks identified at this time. Initial Sepsis Screen: Does the patient meet any 2 criteria? No. Patient's initial sepsis screen is negative. Does the patient have a suspected source of infection? No. Patient's initial sepsis screen is negative. Risk Assessment: Do you want to hurt yourself or someone else? Patient reports no desire to harm self or others. Onset of symptoms was May 05, 2024. 20:54 Method Of Arrival: Ambulatory kj2 20:54 Acuity: ADENIKE 3 kj2 Triage Assessment: 20:59 General: Appears uncomfortable, Behavior is calm, cooperative. Pain: Complains of pain kj2 in right leg Pain currently is 8 out of 10 on a pain scale. Cardiovascular: Patient's skin is warm and dry. Respiratory: Airway is patent Respiratory effort is unlabored. Historical: - Allergies: 20:57 PENICILLINS; kj2 - PMHx: 20:57 Diabetes - NIDDM; Hypothyroidism; kj2 - Immunization history:: Adult Immunizations up to date. - Infectious Disease History:: Denies. - Social history:: Smoking status: Patient/guardian denies using tobacco, the patient reports quitting approximately 2 years ago. - Family history:: not pertinent. Screenin:05 [facility] ED Fall Risk Assessment (Adult) History of falling in the last 3 months, me1 including since admission No falls in past 3 months (0 pts) Confusion or Disorientation No (0 pts) Intoxicated or Sedated No (0 pts) Impaired Gait Yes (1 pt) Mobility Assist Device Used Yes (1 pt) Altered Elimination No (0 pt) Score/Fall Risk Level 0 - 2 = Low Risk Maintained a safe environment, Provided non-skid footwear, Hourly rounding (assess needs \T\ fall precautionary measures) done. Abuse screen: Denies threats or abuse. Nutritional screening: No deficits noted. Tuberculosis screening: No symptoms or risk factors identified. Assessment: 21:05 General: Appears uncomfortable, obese, well groomed, well developed, Behavior is calm, me1 cooperative, appropriate for age, Reports. Pain: Complains of pain in right femoral area Pain radiates to right gluteus waqar and right leg Pain currently is 10 out of 10 on a pain scale. Quality of pain is described as sharp, shooting, Pain began about 3 pm today Is continuous. Neuro: Level of Consciousness is awake, alert, obeys commands, Oriented to person, place, time, situation, Appropriate for age. Cardiovascular: Patient's skin is warm and dry. Respiratory: Airway is patent Respiratory effort is even, unlabored, Respiratory pattern is regular, symmetrical. GI: No signs and/or symptoms were reported involving the gastrointestinal system. : No signs and/or symptoms were reported regarding the genitourinary system. EENT: No signs and/or symptoms were reported regarding the EENT system. Derm: Skin is intact, is healthy with good turgor, Skin is pink, warm \T\ dry. Musculoskeletal: Reports weakness in right leg pain in right femoral area since 3 pm today. 05/06 01:49 General: PT SLEEPING IN BED. RATES PAIN TO RIGHT LEG 2/10. NO SIGNS OF DISTRESS AT THIS br2 TIME. Vital Signs: 05/05 20:54 BP 116 / 74; Pulse 92; Resp 18; Temp 97.6; Pulse Ox 95% on R/A; Weight 134.26 kg; kj2 Height 5 ft. 9 in. ; Pain 8/10; 05/06 01:49 BP 92 / 52; Pulse 84; Resp 16; Pulse Ox 100% ; br2 04:09 BP 103 / 67; Pulse 84; Resp 18; Pulse Ox 90% ; br2 05:50 BP 111 / 61; Pulse 66; Resp 16; Pulse Ox 100% on R/A; br2 05/05 20:54 Body Mass Index 43.71 (134.26 kg, 175.26 cm) [facility] 05/05 20:54 Pain Scale: Adult [facility] ED Course: 05/05 20:29 Patient arrived in ED. gm2 20:57 Triage completed. kj2 21:00 Arm band placed on right wrist. Patient placed in waiting room. kj2 21:05 Patient has correct armband on for positive identification. Bed in low position. Call me1 light in reach. Side rails up X2. Provided Education on: POC. Verbalized understanding. Client placed on continuous cardiac and pulse oximetry monitoring. NIBP monitoring applied. Pulse ox on. NIBP on. 21:05 No provider procedures requiring assistance completed. me1 21:38 Kong Angela MD is Attending Physician. stan 22:19 Caitlin Bejarano, JONO is Primary Nurse. me1 23:24 Basic Metabolic Panel Sent. me1 23:24 CBC with Diff Sent. me1 23:24 LFT's Sent. me1 23:24 Magnesium Sent. me1 23:24 NT PRO-BNP Sent. me1 23:24 PT-INR Sent. me1 23:24 Troponin HS Sent. me1 23:29 Initial lab(s) drawn, by dc, sent to lab. Inserted saline lock: 20 gauge in right me1 antecubital area, using aseptic technique. 23:42 EKG done, by ED staff, reviewed by Kong Angela MD. oe 05/06 00:09 XRAY Chest (1 view) In Process Unspecified. EDMS 00:09 Pelvis XRAY In Process Unspecified. EDMS 02:28 CT Abd/Pelvis - IV Contrast Only: go to mid thighs In Process Unspecified. EDMS 03:16 US Extremity Venous W Compression Torin In Process Unspecified. EDMS 03:18 William Gaona MD is Referral Physician. stan 05:48 IV discontinued, intact, No redness/swelling at site. Pressure dressing applied. br2 Administered Medications: 05/05 23:43 Drug: NS 0.9% IV 1000 ml IV at 1 bolus Per protocol; 1000 mL bolus Route: IV; Rate: 1 me1 bolus; Site: right antecubital; 05/06 05:31 Follow up: IV Status: Completed infusion; IV Intake: 1000ml br2 05/05 23:43 Drug: HYDROmorphone IVP 1 mg IVP once Route: IVP; Site: right antecubital; dc1 05/06 05:30 Follow up: Response: No adverse reaction; Pain is decreased br2 05/05 23:44 Drug: Ondansetron IVP 4 mg IVP once; over 2 minutes Route: IVP; Site: right antecubital;me1 05/06 05:30 Follow up: Response: No adverse reaction br2 05/05 23:44 Drug: Ketorolac IVP 30 mg IVP once Route: IVP; Site: right antecubital; me1 05/06 05:30 Follow up: Response: No adverse reaction br2 05/05 23:44 Drug: Diazepam PO 10 mg PO once Route: PO; me1 05/06 05:30 Follow up: Response: No adverse reaction br2 04:06 Drug: NS 0.9% IV 1000 ml IV at 1 bolus Per protocol; 1000 mL bolus Route: IV; Rate: 1 br2 bolus; Site: right antecubital; 05:28 Follow up: IV Status: Completed infusion; IV Intake: 1000ml br2 04:06 Drug: Potassium PO Effervescent Tablet 50 mEq PO once; dissolve in 4 ounces of water or br2 juice Route: PO; 05:28 Follow up: Response: No adverse reaction br2 Medication: 05/05 21:05 VIS not applicable for this client. me1 Intake: 05/06 05:28 IV: 1000ml; Total: 1000ml. br2 05:31 IV: 1000ml; Total: 2000ml. br2 Outcome: 03:18 Discharge ordered by MD. pierce 05:47 Discharged to home via wheelchair, br2 05:47 Condition: improved 05:47 Discharge instructions given to patient, Instructed on discharge instructions, follow up and referral plans. medication usage, crutch walking, Demonstrated understanding of Prescriptions given X 1, 05:52 Patient left the ED. br2 Signatures: Dispatcher [employer] EDHI Kong Angela MD MD cha Espinosa, Orlando oe Eddleman, Michelle, RN RN me1 Romina Recinos gm2 Aracely Maxwell RN RN br2 Raiza Gaming RN RN kj2 Corrections: (The following items were deleted from the chart) 05/05 22:53 20:54 Chief complaint: Patient states: he can not move his right leg since 1500 pm this me1 afternoon. Started having leg spasms kj2
[2024-05-06] MEDS ORDERED: NA CHLORIDE 0.9% 1,000 ML ONE (03:58)
[2024-05-06] MEDS ORDERED: POTASSIUM 25 MEQ EFFERV TAB ONE (03:58)
[2024-05-06 06:02] VITALS: TEMP 97.6
[2024-05-06 06:19] VITALS: BP 111/61; O2SAT 100
--- NOTE | 2024-05-06 10:05 | RAD REPORT ---
EXAM DESCRIPTION: Extrem Venous W Compress Torin CLINICAL HISTORY: PAIN COMPARISON: None. TECHNIQUE: Grayscale, color Doppler, and spectral Doppler imaging of the bilateral lower extremity v enous system. FINDINGS: Normal compressibility and flow identified in the bilateral common femoral, superficial fe moral, popliteal, and visualized calf veins. No echogenic thrombus identified. No soft tissue abnorma lities. Respiratory phasicity in the common femoral veins. IMPRESSION: No evidence of lower extremity DVT. Electronically signed by: Govind Diallo DO 05/06/2024 03:25 AM CDT RP 4ZDM Due to temporary technical issues with the PACS/Fluency reporting system, reports are being signed by the in house radiologist without review as a courtesy to ensure prompt reporting. The interpreting r adiologist is fully responsible for the content of the report.
--- NOTE | 2024-05-06 10:33 | RAD REPORT ---
EXAM DESCRIPTION: Abdomen Pelvis W Contrast CLINICAL HISTORY: Abd pain;Pain COMPARISON: 02/18/2019 TECHNIQUE: CT of the abdomen and pelvis performed following IV administration of iodinated contras t. This exam was performed according to our departmental dose-optimization program, which includes au tomated exposure control, adjustment of the mA and/or kV according to patient size and/or use of iter ative reconstruction technique. FINDINGS: Lung Bases: Minimal dependent atelectasis. Bones: Mild multilevel endplate spondylosis, disc height narrowing, and facet arthropathy. Mild multi level neural foraminal narrowing without definite central canal narrowing. Abdomen: Liver: Hepatomegaly with diffusely decreased density. Subcentimeter hepatic hypodensities may represe nt cysts. Gallbladder: Calcified gallstones. Spleen, Pancreas, and Adrenal Glands: The spleen, pancreas, and right adrenal glands are unremarkab le. 1.0 cm left adrenal nodule demonstrates greater than 5 year stability. No follow-up imaging recom mended. Kidneys: No hydronephrosis or obstructing calculus. Vasculature: Aortoiliac atherosclerosis. IVC is unremarkable. The portal vein is patent. The proxim al visceral and renal arteries are patent. Stomach: Small hiatal hernia. Other: No free intraperitoneal air. No free fluid or lymphadenopathy. Pelvis: Bladder: Urinary bladder is unremarkable. Bowel: No dilated loops of large or small bowel. Appendix: Normal appendix. Pelvis: Prostate is not enlarged. IMPRESSION: 1. Cholelithiasis without other CT evidence of acute cholecystitis. 2. Hepatomegaly and hepatic steatosis. Electronically signed by: Govind Diallo DO 05/06/2024 02:36 AM CDT 4ZDM Due to temporary technical issues with the PACS/Fluency reporting system, reports are being signed by the in house radiologist without review as a courtesy to ensure prompt reporting. The interpreting r adiologist is fully responsible for the content of the report.
--- NOTE | 2024-05-06 10:57 | RAD REPORT ---
EXAM DESCRIPTION: Chest Single View CLINICAL HISTORY: Abdominal distention. COMPARISON: None. TECHNIQUE: XR CHEST 1 VIEW 05/05/2024 11:11 PM CDT FINDINGS: The heart is moderately enlarged. Lungs are clear without consolidation, atelectasis, mass or edema. There is no pleural effusion. There is no pneumothorax. There are no acute osseous finding s. IMPRESSION: Clear lungs. Electronically signed by: Benito Cazares MD 05/06/2024 12:19 AM CDT RP Due to temporary technical issues with the PACS/Fluency reporting system, reports are being signed by the in house radiologist without review as a courtesy to ensure prompt reporting. The interpreting r adiologist is fully responsible for the content of the report.
--- NOTE | 2024-05-06 10:58 | RAD REPORT ---
EXAM DESCRIPTION: Pelvis CLINICAL HISTORY: Pain. COMPARISON: None. TECHNIQUE: XR PELVIS 1-2 VIEWS 05/05/2024 11:11 PM CDT FINDINGS: There is no fracture. There is mild narrowing of both hip joints. Soft tissues are unremar kable. IMPRESSION: No acute osseous findings. Electronically signed by: Benito Cazares MD 05/06/2024 12:19 AM CDT RP Due to temporary technical issues with the PACS/Fluency reporting system, reports are being signed by the in house radiologist without review as a courtesy to ensure prompt reporting. The interpreting r adiologist is fully responsible for the content of the report.
== END 2024-05-06 05:52 | disposition home or self-care (01) ==
LOC: ER 20:19
DX: R29.91 Unspecified symptoms and signs involving the musculoskeletal system (principal); K80.80 Other cholelithiasis without obstruction; E11.9 Type 2 diabetes mellitus without complications
CPT/HCPCS: J1170; J2405; J7030; 36415; 71045; 72170; 74177; 80048; 80076; 83735; 83880; 84484; 85025; 85610; 93970; Q9967

== ENCOUNTER 2024-08-12 12:21 | Emergency (ER) | payer OTHER ==
[2024-08-12 14:00] LABS: Absolute Basophils 0.1 K/uL (0-0.5); Absolute Eosinophils 0.1 K/uL (0-0.5); Absolute Lymphocytes (CBC) 1.9 K/uL (0.7-4.9); Absolute Monocytes 0.6 K/uL (0.1-1.3); Basophils % 1.1 % (0-1.3); Eosinophils % 2.2 % (0-4.4); Hematocrit 51.8 % (39.6-49.0); Lymphocytes % 28.4 % (15.3-44.8); MCHC 32.9 g/dL (32.0-36.0); MCV 94.2 fL (80-100); MPV 9.1 fL (7.6-11.3); Monocytes % 8.5 % (3.3-12.3); Neutrophils % 59.8 % (41.7-73.7); Platelets 216 thou/uL (152-406); RBC Red Blood Cell Count 5.49 M/uL (4.33-5.43); Red Cell Distribution Width 15.8 % (12.1-15.2)
[2024-08-12 14:09] LABS: PT Prothrombin Time 10.8 SECONDS (9.4-12.5); Protime INR 0.96
[2024-08-12 14:36] LABS: ALT/SGPT 41 U/L (16-61); Albumin 3.4 g/dL (3.4-5.0); Albumin/Globulin Ratio 0.8 (1.1-1.8); Alkaline Phosphatase 79 U/L (45-117); BUN Blood Urea Nitrogen 20 mg/dL (7-18); Bicarbonate 25 mEq/L (21-32); Bilirubin Total 0.7 mg/dL (0.2-1.0); Globulin 4.2 g/dL (2.3-3.5); Glomerular Filtration Rate 95 ml/min (=/>90); Glucose Level 178 mg/dL (74-106); NT PRO-BNP 33 pg/mL (<125); Protein, Total 7.6 g/dL (6.4-8.2); Sodium Level 139 mEq/L (136-145); Troponin High Sensitivity 6.6 pg/mL (<58.9)
--- NOTE | 2024-08-12 14:36 | RAD REPORT ---
EXAMINATION: ONE VIEW CHEST XR CLINICAL INDICATION: Male, 64 years old.,DYSPNEA TECHNIQUE: Frontal chest projection is submitted. Examination is limited by patient positioning and t echnique. COMPARISON: 05/05/2024 FINDINGS: The lungs are well inflated and clear. No pneumothorax or sizable effusion. Stable cardiomegaly. Med iastinal contours are unremarkable. IMPRESSION: No acute intrathoracic abnormalities.
[2024-08-12 14:38] LABS: AST/SGOT 39 U/L (15-37); Bilirubin Direct < 0.2 mg/dL (0-0.2); Bilirubin Indirect, Calculated 0.5 mg/dL (0.2-0.8); Magnesium 2.1 mg/dL (1.6-2.4)
--- NOTE | 2024-08-12 14:42 | EDPHYS ---
Physician Documentation [facility] Name: Dakota Escalera Age: 64 yrs Sex: Male : 1960 Arrival Date: 08/12/2024 Time: 12:21 Bed 20 Private MD: ED Physician Ciarra Bearden HPI: 08/12 13:16 This 64 yrs old Male presents to ER via Ambulatory with complaints of High Blood Sugar, sp3 Shortness Of Breath. 13:16 64-year-old male with history of diabetes [id number] presents with chief sp3 complaint general fatigue, high blood sugar into the 600s. Patient states he has been taking increased herbals including ashwagonda. He denies any other symptoms including headache, fever, neck pain, chest pain, back pain, abdominal pain, vomiting, diarrhea, syncope, near syncope, bleeding, melena, known sick contacts, travel history, or any other signs or symptoms on ROS at this time. He does endorse mild shortness of breath but is mainly here because of the blood sugar stating that he cannot get it down.. Historical: - Allergies: 12:29 No Known Allergies; ko1 - PMHx: 12:29 Diabetes - NIDDM; Hypothyroidism; ko1 - PSHx: 12:29 back surgery x 3; vocal cord surgery; ko1 - Immunization history:: Adult Immunizations unknown. - Infectious Disease History:: Denies. - Social history:: Smoking status: Patient/guardian denies using tobacco, the patient reports quitting approximately 4 years ago. ROS: 13:18 Constitutional: Negative for fever, chills, and weight loss, Eyes: Negative for injury, sp3 pain, redness, and discharge, Neck: Negative for injury, pain, and swelling, Cardiovascular: Negative for chest pain, palpitations, and edema, Respiratory: Negative for shortness of breath, cough, wheezing, and pleuritic chest pain, Back: Negative for injury and pain, MS/Extremity: Negative for injury and deformity, Skin: Negative for injury, rash, and discoloration, Neuro: Negative for headache, weakness, numbness, tingling, and seizure, Hematologic/Lymphatic: Negative for swollen nodes, abnormal bleeding, and unusual bruising, 13:18 All other systems are negative, Exam: 13:18 Constitutional: This is a well developed, well nourished patient who is awake, alert, sp3 and in no acute distress. Head/Face: Normocephalic, atraumatic. Eyes: Pupils equal round and reactive to light, extra-ocular motions intact. Lids and lashes normal. Conjunctiva and sclera are non-icteric and not injected. Cornea within normal limits. Periorbital areas with no swelling, redness, or edema. ENT: Nares patent. No nasal discharge, no septal abnormalities noted. External auditory canals are clear. Oropharynx with no redness, swelling, or masses, exudates, or evidence of obstruction, uvula midline. Mucous membranes moist. Neck: Trachea midline, no thyromegaly or masses palpated, and no cervical lymphadenopathy. Supple, full range of motion without nuchal rigidity, or vertebral point tenderness. No Meningismus. Chest/axilla: Normal chest wall appearance and motion. Nontender with no deformity. No lesions are appreciated. Cardiovascular: Regular rate and rhythm with a normal S1 and S2. No gallops, murmurs, or rubs. Normal PMI, no JVD. No pulse deficits. Respiratory: Lungs have equal breath sounds bilaterally, clear to auscultation and percussion. No rales, rhonchi or wheezes noted. No increased work of breathing, no retractions or nasal flaring. Abdomen/GI: Soft, non-tender, with normal bowel sounds. No distension or tympany. No guarding or rebound. No evidence of tenderness throughout. Back: No spinal tenderness. No costovertebral tenderness. Full range of motion. Skin: Warm, dry with normal turgor. Normal color with no rashes, no lesions, and no evidence of cellulitis. MS/ Extremity: Pulses equal, no cyanosis. Neurovascular intact. Full, normal range of motion. Neuro: Awake and alert, GCS 15, oriented to person, place, time, and situation. Cranial nerves II-XII grossly intact. Motor strength 5/5 in all extremities. Sensory grossly intact. Cerebellar exam normal. Normal gait. Psych: Awake, alert, with orientation to person, place and time. Behavior, mood, and affect are within normal limits. 14:07 ECG was reviewed by the Attending Physician. EKG demonstrates normal sinus rhythm at 86 sp3 bpm with normal intervals except QRS at 481, normal QRS, leftward axis, nonspecific diffuse ST/T changes without evidence of acute ischemia. Vital Signs: 12:27 BP 123 / 95; Pulse 87; Resp 18; Temp 97.8; Pulse Ox 96% on R/A; ko1 13:50 BP 112 / 82; Pulse 84; Resp 16; Pulse Ox 94% ; db 14:35 BP 125 / 90; Pulse 90; Resp 16; Pulse Ox 95% on R/A; db MDM: 12:42 Medical Screening Exam initiated sp3 13:19 Data reviewed: vital signs, nurses notes, lab test result(s), EKG, radiologic studies. sp3 ED course: 64-year-old male with general fatigue and hyperglycemia. Clinically patient does not appear to be dehydrated, septic or in DKA. Differential diagnosis includes hyperglycemia, dehydration, electrolyte abnormality, diet indiscretion, among others. I am not highly suspicious for acute coronary syndrome, pneumonia, PE, TAD, sepsis, shock or any other critical process. Workup will include EKG, chest x-ray, labs and general supportive care with intervention for any hypoglycemia as indicated.. 14:40 ED course: Blood sugar down to 178 without any intervention. Full workup negative. We sp3 will safely discharge patient home at this time. There may be an issue with his calibration at home.. 08/12 12:43 Order name: Basic Metabolic Panel; Complete Time: 14:39 sp3 08/12 12:43 Order name: CBC with Diff; Complete Time: 14:39 3 08/12 12:43 Order name: LFT's; Complete Time: 14:39 3 08/12 12:43 Order name: Magnesium; Complete Time: 14:39 sp3 08/12 12:43 Order name: NT PRO-BNP; Complete Time: 14:39 sp3 08/12 12:43 Order name: PT-INR; Complete Time: 14:39 sp3 08/12 12:43 Order name: Troponin HS; Complete Time: 14:39 3 08/12 13:58 Order name: Glucose, Ancillary Testing; Complete Time: 13:58 EDMS 08/12 12:43 Order name: XRAY Chest (1 view); Complete Time: 14:39 3 08/12 12:43 Order name: EKG; Complete Time: 12:43 sp3 08/12 12:43 Order name: Cardiac monitoring; Complete Time: 14:04 sp3 08/12 12:43 Order name: EKG - Nurse/Tech; Complete Time: 14:04 sp3 08/12 12:43 Order name: IV Saline Lock; Complete Time: 14:04 sp3 08/12 12:43 Order name: Labs collected and sent; Complete Time: 14:04 sp3 08/12 12:43 Order name: O2 Per Protocol; Complete Time: 14:04 sp3 08/12 12:43 Order name: O2 Sat Monitoring; Complete Time: 14:04 sp3 Administered Medications: No medications were administered Disposition Summary: 08/12/24 14:41 Discharge Ordered Notes: Location: Home sp3 Condition: Stable sp3 Diagnosis - Hyperglycemia, unspecified sp3 Followup: sp3 - With: Private Physician - When: Upon discharge from the Emergency Department - Reason: Continuance of care Discharge Instructions: - Discharge Summary Sheet sp3 - Hyperglycemia sp3 - Blood Glucose Monitoring, Adult sp3 Forms: - Medication Reconciliation Form sp3 - Antibiotic Education sp3 - Prescription Opioid Use sp3 - Patient Portal Instructions sp3 - Leadership Thank You Letter sp3 Signatures: Dispatcher [employer] Ciarra Whitman MD MD sp3 Hansa Malone, RN RN ko1 Corrections: (The following items were deleted from the chart) 12:33 12:29 Allergies: PENICILLINS; ko1 ko1
--- NOTE | 2024-08-12 14:42 | ER ---
Nurse's Notes [facility] Name: Dakota Escalera Age: 64 yrs Sex: Male : 1960 Arrival Date: 08/12/2024 Time: 12:21 Bed 20 Private MD: Diagnosis: Hyperglycemia, unspecified Presentation: 08/12 12:27 Chief complaint: Patient states: feeling tired for the past 2 weeks, blood sugar was ko1 600 at home. Urinating more, thirsty. Coronavirus screen: At this time, the client does not indicate any symptoms associated with coronavirus-19. Ebola Screen: No symptoms or risks identified at this time. Initial Sepsis Screen: Does the patient meet any 2 criteria? No. Patient's initial sepsis screen is negative. Does the patient have a suspected source of infection? No. Patient's initial sepsis screen is negative. Risk Assessment: Do you want to hurt yourself or someone else? Patient reports no desire to harm self or others. Onset of symptoms is unknown. 12:27 Method Of Arrival: Ambulatory ko1 12:27 Acuity: ADENIKE 3 ko1 Triage Assessment: 12:29 General: Appears in no apparent distress. Behavior is calm, cooperative, appropriate ko1 for age. Pain: Denies pain. Respiratory: Reports shortness of breath at rest on exertion Onset: The symptoms/episode began/occurred gradually, the patient has mild shortness of breath. Historical: - Allergies: 12:29 No Known Allergies; ko1 - PMHx: 12:29 Diabetes - NIDDM; Hypothyroidism; ko1 - PSHx: 12:29 back surgery x 3; vocal cord surgery; ko1 - Immunization history:: Adult Immunizations unknown. - Infectious Disease History:: Denies. - Social history:: Smoking status: Patient/guardian denies using tobacco, the patient reports quitting approximately 4 years ago. Screenin:50 [facility] ED Fall Risk Assessment (Adult) History of falling in the last 3 months, db including since admission No falls in past 3 months (0 pts) Confusion or Disorientation No (0 pts) Intoxicated or Sedated No (0 pts) Impaired Gait No (0 pts) Mobility Assist Device Used No (0 pt) Altered Elimination No (0 pt) Score/Fall Risk Level 0 - 2 = Low Risk Oriented to surroundings, Maintained a safe environment. Abuse screen: Denies threats or abuse. Denies injuries from another. Nutritional screening: No deficits noted. Tuberculosis screening: No symptoms or risk factors identified. Assessment: 13:50 Reassessment: Patient appears in no apparent distress at this time. Patient and/or db family updated on plan of care and expected duration. Pain level reassessed. Patient is alert, oriented x 3, equal unlabored respirations, skin warm/dry/pink. General: Appears in no apparent distress. comfortable, Behavior is calm, cooperative. Pain: Denies pain. Neuro: Level of Consciousness is awake, alert, obeys commands, Oriented to person, place, time, situation. Cardiovascular: Rhythm is regular. Respiratory: Airway is patent Respiratory effort is even, unlabored, Respiratory pattern is regular, symmetrical, Breath sounds are clear. 14:58 Reassessment: Patient appears in no apparent distress at this time. Patient and/or db family updated on plan of care and expected duration. Pain level reassessed. Patient is alert, oriented x 3, equal unlabored respirations, skin warm/dry/pink. Vital Signs: 12:27 BP 123 / 95; Pulse 87; Resp 18; Temp 97.8; Pulse Ox 96% on R/A; ko1 13:50 BP 112 / 82; Pulse 84; Resp 16; Pulse Ox 94% ; db 14:35 BP 125 / 90; Pulse 90; Resp 16; Pulse Ox 95% on R/A; db ED Course: 12:24 Patient arrived in ED. mr 12:29 Triage completed. ko1 12:29 Arm band placed on right wrist. Patient placed in an exam room, on a stretcher, on ko1 library monitor, on pulse oximetry, Patient notified of wait time. 12:30 Ciarra Bearden MD is Attending Physician. sp3 13:12 Anastacia Dobbs, JONO is Primary Nurse. db 13:21 XRAY Chest (1 view) In Process Unspecified. EDMS 13:45 Initial lab(s) drawn, by me, sent to lab. EKG done. Inserted saline lock: 22 gauge in db right antecubital area, using aseptic technique. Blood collected. Flushed with 10 mL NS. 13:50 Patient has correct armband on for positive identification. Bed in low position. Call db light in reach. Side rails up X 1. Client placed on continuous cardiac and pulse oximetry monitoring. NIBP monitoring applied. library monitor on. Pulse ox on. NIBP on. Warm blanket given. 14:58 Provided Education on: DISCHARGE AND FOLLOWUP. db 14:58 No provider procedures requiring assistance completed. IV discontinued, intact, db bleeding controlled, No redness/swelling at site. Administered Medications: No medications were administered Medication: 13:50 VIS not applicable for this client. db Outcome: 14:41 Discharge ordered by . po 14:58 Discharged to home ambulatory, with family, db 14:58 Condition: stable 14:58 Discharge instructions given to patient, family, Instructed on discharge instructions, follow up and referral plans. 14:58 Patient left the ED. db Signatures: Dispatcher [employer] EDMS Raven Salcedo, Reg Ciarra Rosado MD MD sp3 Hansa Malone, RN RN ko1 Anastacia Dobbs, RN RN db Corrections: (The following items were deleted from the chart) 12:33 12:29 Allergies: PENICILLINS; ko1 ko1
[2024-08-12 20:29] VITALS: TEMP 97.8
[2024-08-12 20:40] VITALS: BP 125/90; O2SAT 95
== END 2024-08-12 14:58 | disposition home or self-care (01) ==
LOC: ER 12:21
DX: E11.65 Type 2 diabetes mellitus with hyperglycemia (principal)
CPT/HCPCS: 36415; 71045; 80048; 80076; 82947; 83735; 83880; 84484; 85025; 85610; 99284